=== PATIENT | male | born 1965 | race African-American/Black ===

== ENCOUNTER 2016-04-13 19:32 | Inpatient (IN) | payer MEDICAID ==
[~2016-04-13] VITALS: Ht 170.2 cm; Wt 68.0 kg
[~2016-04-13 19:32] MED LIST: AMLO10TA4 PO; ASPI-991 PO; SIMV20TA2 PO
[2016-04-13] MEDS ORDERED: ONDANSETRON HCL/PF 4 MG/2 ML VIAL IVP ONE (20:30)
[2016-04-13] MEDS ORDERED: ONDANSETRON HCL/PF 4 MG/2 ML VIAL ONE ×2 (20:33→23:36)
[2016-04-13 20:35] LABS: BASOPHILS % (AUTO) 0.7 % (0.0-2.0); DIFF TOTAL % 100 %; EOSINOPHILS # (AUTO) 0.1 /CMM (0.0-0.7); EOSINOPHILS % (AUTO) 1.9 % (0.0-6.0); HEMATOCRIT 35 % (39-51); HEMOGLOBIN 11.9 g/dL (13.5-17.5); LYMPHOCYTES # (AUTO) 1.6 /CMM (0.8-4.8); LYMPHOCYTES % (AUTO) 25.8 % (20.0-44.0); MEAN CORPUSCULAR HEMOGLOBIN 30 PG (26.0-33.0); MEAN CORPUSCULAR HGB CONC 34 g/dl (31.0-36.0); MEAN CORPUSCULAR VOLUME 88 fL (80-96); MONOCYTES # (AUTO) 0.7 /CMM (0.1-1.30); MONOCYTES % (AUTO) 11.5 % (2.0-12.0); NEUTROPHILS # (AUTO) 3.8 /CMM (1.8-8.9); NEUTROPHILS % (AUTO) 60.1 % (43.0-81.0); PLATELET COUNT (AUTO) 363 /CMM (150-450); RED BLOOD CELL COUNT(AUTO) 4.02 MIL/uL (4.5-6.0); WHITE BLOOD COUNT (AUTO) 6.2 K/uL (4.3-11.0)
[2016-04-13 20:45] LABS: ALBUMIN 3.7 g/dL (3.4-5.0); BILIRUBIN,DIRECT 0.1 mg/dL (0.0-0.2); BILIRUBIN,TOTAL 0.2 mg/dL (0.2-1.0); CALCIUM, SERUM 9.6 mg/dL (8.5-10.1); CREATININE 2.2 mg/dL (0.6-1.3); INDIRECT BILIRUBIN 0.1 mg/dL (0.0-1.1); POTASSIUM 3.1 mmol/L (3.5-5.1); TOTAL PROTEIN, SERUM 7.7 g/dL (6.4-8.2)
[2016-04-13] MEDS ORDERED: IV NS 0.9% 1,000 ML ONE ×2 (21:25→23:13)
[2016-04-13] MEDS ORDERED: IV SET PRIMARY 1 EA INFUS.SET MC ONE (21:25)
[2016-04-13] MEDS ORDERED: IV NS 0.9% 1,000 ML BAG IV ONE (21:30)
[2016-04-13 21:33] LABS: ABG BASE EXCESS 23.4 mmol/L; ABG PCO2 56.2 mmHg (35.0-45.0); ABG PH 7.558 (7.350-7.450); ABG PO2 79.4 mmHg (75.0-100.0); ABG TOTAL HEMOGLOBIN 12.1 G/dL (13.5-18.0); ALLEN TEST Pass; O2Hb 95.3 % (94.0-97.0)
[2016-04-13] MEDS ORDERED: Z GUARD REMEDY 2 OZ OINT TP PRN (23:00)
[2016-04-13] MEDS ORDERED: MAG HYDROX/AL HYDROX/SIMETH 30 ML UDC PO PRN (23:00)
[2016-04-13] MEDS ORDERED: ZOLPIDEM TARTRATE 5 MG TABLET PO PRN (23:00)
[2016-04-13] MEDS ORDERED: ONDANSETRON HCL/PF 4 MG/2 ML VIAL IVP PRN (23:00)
[2016-04-13] MEDS ORDERED: MAGNESIUM HYDROXIDE 30 ML UDC PO PRN (23:00)
[2016-04-13] MEDS ORDERED: IV SET PRIMARY PUMP SET 1 EA INFUS.SET MC ONE (23:13)
[2016-04-13] MEDS: IV NS 0.9% 1,000 ML IV PRN (23:42)
[2016-04-13 23:45] VITALS: BP 109/61
[2016-04-14] VITALS: BP 129/80
[2016-04-14] MEDS: HYDROMORPHONE INJ 2 MG/ML DISP.SYRIN IV PRN ×3 (00:04→09:55)
[2016-04-14] MEDS ORDERED: POTASSIUM CL. PREMIX PERIPHER. 200 ML ONE (00:57)
[2016-04-14] MEDS: POTASSIUM CL. PREMIX PERIPHER. 50 ML IV SCH ×4 (01:01→04:07)
[2016-04-14] MEDS ORDERED: HYDROMORPHONE INJ 2 MG/ML DISP.SYRIN ONE ×2 (03:14)
[2016-04-14 04:00] VITALS: BP_SYST 109; BP_SYST 129; BP_DIAS 61; BP_DIAS 80
[2016-04-14 06:50] LABS: BASOPHILS % (AUTO) 0.6 % (0.0-2.0); DIFF TOTAL % 100 %; EOSINOPHILS # (AUTO) 0.2 /CMM (0.0-0.7); EOSINOPHILS % (AUTO) 2.2 % (0.0-6.0); HEMATOCRIT 30 % (39-51); HEMOGLOBIN 10.3 g/dL (13.5-17.5); LYMPHOCYTES # (AUTO) 2.1 /CMM (0.8-4.8); LYMPHOCYTES % (AUTO) 26.7 % (20.0-44.0); MEAN CORPUSCULAR HEMOGLOBIN 30 PG (26.0-33.0); MEAN CORPUSCULAR HGB CONC 35 g/dl (31.0-36.0); MEAN CORPUSCULAR VOLUME 88 fL (80-96); MONOCYTES % (AUTO) 12.7 % (2.0-12.0); NEUTROPHILS # (AUTO) 4.6 /CMM (1.8-8.9); NEUTROPHILS % (AUTO) 57.8 % (43.0-81.0); PLATELET COUNT (AUTO) 312 /CMM (150-450); RED BLOOD CELL COUNT(AUTO) 3.39 MIL/uL (4.5-6.0); WHITE BLOOD COUNT (AUTO) 7.9 K/uL (4.3-11.0)
[2016-04-14 07:08] LABS: ALBUMIN 3.3 g/dL (3.4-5.0); BILIRUBIN,TOTAL 0.2 mg/dL (0.2-1.0); CALCIUM, SERUM 8.6 mg/dL (8.5-10.1); POTASSIUM 3.4 mmol/L (3.5-5.1); TOTAL PROTEIN, SERUM 6.7 g/dL (6.4-8.2)
[2016-04-14 07:41] LABS: INDIRECT BILIRUBIN 0.2 mg/dL (0.0-1.1)
[2016-04-14 08:00] VITALS: BP 110/68
[2016-04-14] MEDS: PANTOPRAZOLE 40 MG VIAL IV SCH (08:30)
[2016-04-14] MEDS ORDERED: acetaZOLAMIDE SODIUM 500 MG/VIAL VIAL IV ONE (11:00)
[2016-04-14] MEDS ORDERED: IV SET PRIMARY PUMP SET 1 EA INFUS.SET MC ONE (11:52)
[2016-04-14] MEDS ORDERED: POTASSIUM CHLORIDE 20 MEQ TAB.PRT.SR PO SCH (12:00)
[2016-04-14] MEDS ORDERED: POTASSIUM CL. PREMIX PERIPHER. 50 ML IV SCH (12:00)
[2016-04-14 14:57] LABS: CREATININE, URINE 74.5 MG/DL (30.0-125.0); URINE TOTAL PROTEIN 28.8 mg/dL (0-11.9)
[2016-04-14 15:23] LABS: ADD UA MICROSCOPIC NO; KETONES,URINE NEGATIVE (NEGATIVE); LEUKOCYTE ESTERASE ,URINE NEGATIVE (NEGATIVE); PH,URINE 8.5 (5.0-8.0)
[2016-04-14 16:00] VITALS: BP 117/68
[2016-04-14] MEDS ORDERED: ANESTHESIA TRAY IN PYXIS 1 EA TRAY MC ONE (17:26)
[2016-04-14] MEDS: IV NS 0.9% 1,000 ML IV PRN (19:12)
[2016-04-14 20:00] VITALS: BP 121/80
[2016-04-15 07:50] LABS: ALBUMIN 3.4 g/dL (3.4-5.0); BILIRUBIN,TOTAL 0.2 mg/dL (0.2-1.0); CALCIUM, SERUM 9.1 mg/dL (8.5-10.1); CREATININE 1.7 mg/dL (0.6-1.3); POTASSIUM 3.8 mmol/L (3.5-5.1); TOTAL PROTEIN, SERUM 7.3 g/dL (6.4-8.2)
[2016-04-15] MEDS: HYDROCODONE/APAP 5/325MG 1 EACH TABLET PO PRN (07:53)
[2016-04-15 08:00] VITALS: BP 127/90
[2016-04-15 08:06] LABS: BASOPHILS % (AUTO) 0.4 % (0.0-2.0); DIFF TOTAL % 100 %; EOSINOPHILS # (AUTO) 0.1 /CMM (0.0-0.7); EOSINOPHILS % (AUTO) 1.5 % (0.0-6.0); HEMATOCRIT 32 % (39-51); HEMOGLOBIN 10.8 g/dL (13.5-17.5); LYMPHOCYTES # (AUTO) 1.3 /CMM (0.8-4.8); MEAN CORPUSCULAR HEMOGLOBIN 30 PG (26.0-33.0); MEAN CORPUSCULAR HGB CONC 34 g/dl (31.0-36.0); MEAN CORPUSCULAR VOLUME 89 fL (80-96); MONOCYTES # (AUTO) 0.4 /CMM (0.1-1.30); MONOCYTES % (AUTO) 6.5 % (2.0-12.0); NEUTROPHILS # (AUTO) 4.5 /CMM (1.8-8.9); NEUTROPHILS % (AUTO) 70.6 % (43.0-81.0); PLATELET COUNT (AUTO) 327 /CMM (150-450); RED BLOOD CELL COUNT(AUTO) 3.62 MIL/uL (4.5-6.0); WHITE BLOOD COUNT (AUTO) 6.4 K/uL (4.3-11.0)
[2016-04-15] MEDS: PANTOPRAZOLE 40 MG VIAL IV SCH (08:39)
[2016-04-15] MEDS ORDERED: K PHOS NEUTRAL 250 MG TABLET PO ONE (14:00)
[2016-04-15] MEDS: IV NS 0.9% 1,000 ML IV PRN (14:57)
[2016-04-15 14:58] LABS: KETONES,URINE NEGATIVE (NEGATIVE); LEUKOCYTE ESTERASE ,URINE NEGATIVE (NEGATIVE)
[2016-04-15 15:05] LABS: ADD UA MICROSCOPIC YES
[2016-04-15 15:07] LABS: ADD URINE CULTURE NO; RBC,URINE 0-2 /HPF (0-2); WBC,URINE 0-2 /HPF (0-3)
[2016-04-15 15:08] LABS: CREATININE, URINE 125.3 MG/DL (30.0-125.0); URINE TOTAL PROTEIN 20.5 mg/dL (0-11.9)
[2016-04-15 16:00] VITALS: BP 128/73
[2016-04-15 16:06] VITALS: BP 128/73
[2016-04-15 20:00] VITALS: BP 117/66
[2016-04-16 07:12] LABS: BASOPHILS # (AUTO) 0.1 /CMM (0.0-0.2); BASOPHILS % (AUTO) 0.7 % (0.0-2.0); DIFF TOTAL % 100 %; EOSINOPHILS # (AUTO) 0.1 /CMM (0.0-0.7); EOSINOPHILS % (AUTO) 2.1 % (0.0-6.0); HEMATOCRIT 29 % (39-51); HEMOGLOBIN 9.6 g/dL (13.5-17.5); LYMPHOCYTES # (AUTO) 2.1 /CMM (0.8-4.8); LYMPHOCYTES % (AUTO) 30.6 % (20.0-44.0); MEAN CORPUSCULAR HEMOGLOBIN 30 PG (26.0-33.0); MEAN CORPUSCULAR HGB CONC 34 g/dl (31.0-36.0); MEAN CORPUSCULAR VOLUME 88 fL (80-96); MONOCYTES # (AUTO) 0.8 /CMM (0.1-1.30); MONOCYTES % (AUTO) 10.9 % (2.0-12.0); NEUTROPHILS # (AUTO) 3.9 /CMM (1.8-8.9); NEUTROPHILS % (AUTO) 55.7 % (43.0-81.0); PLATELET COUNT (AUTO) 283 /CMM (150-450); RED BLOOD CELL COUNT(AUTO) 3.27 MIL/uL (4.5-6.0)
[2016-04-16 07:30] LABS: CALCIUM, SERUM 8.5 mg/dL (8.5-10.1); CREATININE 1.5 mg/dL (0.6-1.3); PHOSPHORUS 2.1 mg/dL (2.5-4.9); POTASSIUM 3.3 mmol/L (3.5-5.1)
[2016-04-16 08:00] VITALS: BP 129/79
[2016-04-16] MEDS: PANTOPRAZOLE 40 MG VIAL IV SCH (08:32)
[2016-04-16 11:34] LABS: *SPE ALBUMIN 3.5 g/dL (2.9-4.4)
[2016-04-16] MEDS ORDERED: POTASSIUM CL. PREMIX PERIPHER. 50 ML IV SCH (12:36)
[2016-04-16] MEDS: IV NS 0.9% 1,000 ML IV PRN (12:36)
[2016-04-16] MEDS ORDERED: SECONDARY IV SET 1 EA INFUS.SET MC ONE (12:58)
[2016-04-16] MEDS: Potassium Chloride 40 MEQ in IV D5/ 0.9% NACL 1,000 ML IV PRN (14:41)
[2016-04-16 16:00] VITALS: BP 126/72
[2016-04-16 16:13] LABS: PTH, INTACT 45 pg/mL (15-65)
[2016-04-16] MEDS: ACETAMINOPHEN 325 MG TABLET PO PRN (17:17)
[2016-04-16] MEDS ORDERED: K PHOS NEUTRAL 250 MG TABLET PO ONE (18:00)
[2016-04-16 20:00] VITALS: BP_SYST 116; BP_SYST 127; BP_DIAS 73; BP_DIAS 89
[2016-04-17] MEDS ORDERED: IV PREMIX D5 NS + KCL 1,000 ML IV ONE (03:48)
[2016-04-17] MEDS: Potassium Chloride 40 MEQ in IV D5/ 0.9% NACL 1,000 ML IV PRN (04:27)
[2016-04-17 07:47] LABS: BASOPHILS % (AUTO) 0.6 % (0.0-2.0); DIFF TOTAL % 100 %; EOSINOPHILS # (AUTO) 0.2 /CMM (0.0-0.7); EOSINOPHILS % (AUTO) 2.5 % (0.0-6.0); HEMATOCRIT 31 % (39-51); HEMOGLOBIN 10.5 g/dL (13.5-17.5); LYMPHOCYTES # (AUTO) 1.7 /CMM (0.8-4.8); LYMPHOCYTES % (AUTO) 25.7 % (20.0-44.0); MEAN CORPUSCULAR HEMOGLOBIN 30 PG (26.0-33.0); MEAN CORPUSCULAR HGB CONC 34 g/dl (31.0-36.0); MEAN CORPUSCULAR VOLUME 88 fL (80-96); MONOCYTES # (AUTO) 0.7 /CMM (0.1-1.30); NEUTROPHILS # (AUTO) 4.1 /CMM (1.8-8.9); NEUTROPHILS % (AUTO) 60.2 % (43.0-81.0); PLATELET COUNT (AUTO) 305 /CMM (150-450); RED BLOOD CELL COUNT(AUTO) 3.55 MIL/uL (4.5-6.0); WHITE BLOOD COUNT (AUTO) 6.7 K/uL (4.3-11.0)
[2016-04-17 07:53] LABS: CALCIUM, SERUM 8.5 mg/dL (8.5-10.1); CREATININE 1.4 mg/dL (0.6-1.3); PHOSPHORUS 1.8 mg/dL (2.5-4.9); POTASSIUM 4.7 mmol/L (3.5-5.1)
[2016-04-17 08:00] VITALS: BP 126/78
[2016-04-17] MEDS: HYDROCODONE/APAP 5/325MG 1 EACH TABLET PO PRN (08:50)
[2016-04-17] MEDS: PANTOPRAZOLE 40 MG VIAL IV SCH (08:50)
[2016-04-17] MEDS ORDERED: Sodium Phosphate 15 MMOL in IV D5W 250 ML IV ONE (12:30)
[2016-04-17] MEDS ORDERED: SECONDARY IV SET 1 EA INFUS.SET MC ONE (13:07)
[2016-04-17] MEDS: IV NS 0.9% 1,000 ML IV PRN (13:10)
[2016-04-17 16:00] VITALS: BP 131/86
[2016-04-17 20:00] VITALS: BP 138/87
[2016-04-17 20:33] VITALS: BP 138/87
[2016-04-17] MEDS: HYDROMORPHONE INJ 2 MG/ML DISP.SYRIN IV PRN (21:24)
[2016-04-18 07:41] LABS: BASOPHILS % (AUTO) 0.6 % (0.0-2.0); DIFF TOTAL % 100 %; EOSINOPHILS # (AUTO) 0.1 /CMM (0.0-0.7); EOSINOPHILS % (AUTO) 2.2 % (0.0-6.0); HEMATOCRIT 28 % (39-51); HEMOGLOBIN 9.4 g/dL (13.5-17.5); LYMPHOCYTES # (AUTO) 1.8 /CMM (0.8-4.8); LYMPHOCYTES % (AUTO) 28.4 % (20.0-44.0); MEAN CORPUSCULAR HEMOGLOBIN 30 PG (26.0-33.0); MEAN CORPUSCULAR HGB CONC 34 g/dl (31.0-36.0); MEAN CORPUSCULAR VOLUME 88 fL (80-96); MONOCYTES # (AUTO) 0.6 /CMM (0.1-1.30); MONOCYTES % (AUTO) 8.9 % (2.0-12.0); NEUTROPHILS # (AUTO) 3.7 /CMM (1.8-8.9); NEUTROPHILS % (AUTO) 59.9 % (43.0-81.0); PLATELET COUNT (AUTO) 253 /CMM (150-450); RED BLOOD CELL COUNT(AUTO) 3.15 MIL/uL (4.5-6.0); WHITE BLOOD COUNT (AUTO) 6.2 K/uL (4.3-11.0)
[2016-04-18 07:50] LABS: CALCIUM, SERUM 8.3 mg/dL (8.5-10.1); CREATININE 1.2 mg/dL (0.6-1.3); POTASSIUM 4.3 mmol/L (3.5-5.1)
[2016-04-18 08:00] VITALS: BP_SYST 110; BP_SYST 138; BP_DIAS 70
[2016-04-18] MEDS: PANTOPRAZOLE 40 MG VIAL IV SCH (08:36)
[2016-04-18] MEDS ORDERED: LORAZEPAM 1 MG TABLET PO PRN (12:00)
[2016-04-18] MEDS ORDERED: OLANZAPINE 5 MG/TAB.RAPDIS PO PRN (12:00)
[2016-04-18] MEDS: IV NS 0.9% 1,000 ML IV PRN (12:26)
[2016-04-18 16:00] VITALS: BP 122/75
[2016-04-18 20:05] VITALS: BP 131/81
[2016-04-19 07:24] LABS: CALCIUM, SERUM 8.5 mg/dL (8.5-10.1); CREATININE 1.3 mg/dL (0.6-1.3); POTASSIUM 4.6 mmol/L (3.5-5.1)
[2016-04-19 08:40] VITALS: BP 135/92
[2016-04-19] MEDS: PANTOPRAZOLE 40 MG VIAL IV SCH (09:26)
[2016-04-19] MEDS ORDERED: IOHEXOL-300 100 ML VIAL IV ONE (10:19)
[2016-04-19] MEDS ORDERED: CT SWABBABLE VALVE TRANS SET 1 EA INFUS.SET MC ONE (10:24)
[2016-04-19 16:00] VITALS: BP 142/92
[2016-04-19 20:00] VITALS: BP 138/89
[2016-04-20 08:00] VITALS: BP 115/72
[2016-04-20] MEDS: PANTOPRAZOLE 40 MG VIAL IV SCH (08:00)
[2016-04-20 08:24] LABS: CALCIUM, SERUM 8.4 mg/dL (8.5-10.1); CREATININE 1.2 mg/dL (0.6-1.3); POTASSIUM 4.4 mmol/L (3.5-5.1)
[2016-04-20 09:23] LABS: BASOPHILS % (AUTO) 0.5 % (0.0-2.0); DIFF TOTAL % 100 %; EOSINOPHILS # (AUTO) 0.2 /CMM (0.0-0.7); EOSINOPHILS % (AUTO) 2.5 % (0.0-6.0); HEMATOCRIT 27 % (39-51); HEMOGLOBIN 8.9 g/dL (13.5-17.5); LYMPHOCYTES # (AUTO) 1.8 /CMM (0.8-4.8); LYMPHOCYTES % (AUTO) 26.7 % (20.0-44.0); MEAN CORPUSCULAR HEMOGLOBIN 30 PG (26.0-33.0); MEAN CORPUSCULAR HGB CONC 34 g/dl (31.0-36.0); MEAN CORPUSCULAR VOLUME 89 fL (80-96); MONOCYTES # (AUTO) 0.7 /CMM (0.1-1.30); MONOCYTES % (AUTO) 9.7 % (2.0-12.0); NEUTROPHILS # (AUTO) 4.1 /CMM (1.8-8.9); NEUTROPHILS % (AUTO) 60.6 % (43.0-81.0); PLATELET COUNT (AUTO) 247 /CMM (150-450); WHITE BLOOD COUNT (AUTO) 6.7 K/uL (4.3-11.0)
[2016-04-20] MEDS ORDERED: SUCCINYLCHOLINE CHLORIDE 20 MG/ML VIAL ONE (15:12)
[2016-04-20] MEDS ORDERED: IOHEXOL 50 ML IV ONE ×2 (15:32→15:53)
[2016-04-20] MEDS ORDERED: PROPOFOL 0 ML IV ONE (15:56)
[2016-04-20] MEDS ORDERED: IOHEXOL 100 ML IV ONE (15:57)
[2016-04-20] MEDS ORDERED: hydrALAZINE HCL IV 20 MG VIAL ONE (16:48)
[2016-04-20] MEDS ORDERED: ANESTHESIA TRAY IN PYXIS 1 EA TRAY MC ONE (17:01)
[2016-04-20 17:16] VITALS: BP 152/99
[2016-04-20 20:00] VITALS: BP 137/90
[2016-04-21 07:51] LABS: BASOPHILS # (AUTO) 0.2 /CMM (0.0-0.2); BASOPHILS % (AUTO) 1.4 % (0.0-2.0); DIFF TOTAL % 100 %; HEMATOCRIT 29 % (39-51); HEMOGLOBIN 9.8 g/dL (13.5-17.5); MEAN CORPUSCULAR HEMOGLOBIN 30 PG (26.0-33.0); MEAN CORPUSCULAR HGB CONC 34 g/dl (31.0-36.0); MEAN CORPUSCULAR VOLUME 89 fL (80-96); MONOCYTES # (AUTO) 1.2 /CMM (0.1-1.30); MONOCYTES % (AUTO) 7.5 % (2.0-12.0); NEUTROPHILS # (AUTO) 13.8 /CMM (1.8-8.9); NEUTROPHILS % (AUTO) 85.1 % (43.0-81.0); PLATELET COUNT (AUTO) 265 /CMM (150-450); RED BLOOD CELL COUNT(AUTO) 3.24 MIL/uL (4.5-6.0); WHITE BLOOD COUNT (AUTO) 16.2 K/uL (4.3-11.0)
[2016-04-21 08:00] VITALS: BP_SYST 141; BP_SYST 144; BP_DIAS 91
[2016-04-21] MEDS: PANTOPRAZOLE 40 MG VIAL IV SCH (08:04)
[2016-04-21 08:32] LABS: ALBUMIN 2.9 g/dL (3.4-5.0); BILIRUBIN,TOTAL 0.2 mg/dL (0.2-1.0); CALCIUM, SERUM 8.7 mg/dL (8.5-10.1); CREATININE 1.4 mg/dL (0.6-1.3); POTASSIUM 4.5 mmol/L (3.5-5.1); TOTAL PROTEIN, SERUM 6.5 g/dL (6.4-8.2)
[2016-04-21] MEDS: ACETAMINOPHEN 325 MG TABLET PO PRN (11:48)
[2016-04-21 16:00] VITALS: BP 144/90
[2016-04-21 20:00] VITALS: BP 141/97
[2016-04-21] MEDS: HYDROCODONE/APAP 5/325MG 1 EACH TABLET PO PRN (22:25)
[2016-04-22 08:00] VITALS: BP 133/83
[2016-04-22] MEDS: PANTOPRAZOLE 40 MG VIAL IV SCH (08:47)
== END 2016-04-22 15:00 | DRG 254 ==
LOC: ER 19:34 → TELE 22:49 → MED 04-14 11:58
PROVIDERS: ADMIT Internal Medicine; ATTEND Internal Medicine
PROC: 0DB78ZX Excision of Stomach, Pylorus, Via Natural or Artificial Opening Endoscopic, Diagnostic (ICD-10-PCS; principal; 2016-04-14 14:10)
PROC: 0D798ZZ Dilation of Duodenum, Via Natural or Artificial Opening Endoscopic (ICD-10-PCS; 2016-04-20)
DX: K31.1 Adult hypertrophic pyloric stenosis (principal); N17.0 Acute kidney failure with tubular necrosis; E87.4 Mixed disorder of acid-base balance; K31.84 Gastroparesis; I12.9 Hypertensive chronic kidney disease with stage 1 through stage 4 chronic kidney disease, or unspecified chronic kidney disease; K83.8 Other specified diseases of biliary tract; E87.6 Hypokalemia; N18.9 Chronic kidney disease, unspecified; D63.8 Anemia in other chronic diseases classified elsewhere; E78.5 Hyperlipidemia, unspecified; F17.210 Nicotine dependence, cigarettes, uncomplicated; F31.9 Bipolar disorder, unspecified; R63.0 Anorexia; Z68.23 Body mass index [BMI] 23.0-23.9, adult; Z87.898 Personal history of other specified conditions; F29 Unspecified psychosis not due to a substance or known physiological condition; F20.0 Paranoid schizophrenia; R19.09 Other intra-abdominal and pelvic swelling, mass and lump; E86.0 Dehydration
CPT/HCPCS: 36415; 36600; 71010-TC; 74000-TC; 74178; 74181-TC; 80048-TC; 80053-TC; 80076-TC; 81000-TC; 82550-TC; 82570-TC; 83690-TC; 83735-TC; 83970; 84100-TC; 84155; 84155-TC; 84165; 84300-TC; 85025-TC; 87081-TC; 88305-TC; 88313-TC; 88342; A4570; A4606; A9563; C9113; J0330; J0360; J1100; J1120; J1170; J2405; J2704; J3480; J3490; J7030; J7042; J7060; Q9967; Z7610

== ENCOUNTER 2016-05-01 07:30 | Inpatient (IN) | payer MEDICAID ==
[~2016-05-01] VITALS: Ht 170.2 cm; Wt 68.5 kg
[2016-05-01 08:06] LABS: BASOPHILS % (AUTO) 0.2 % (0.0-2.0); DIFF TOTAL % 100 %; EOSINOPHILS # (AUTO) 0.1 /CMM (0.0-0.7); EOSINOPHILS % (AUTO) 1.1 % (0.0-6.0); HEMATOCRIT 27 % (39-51); LYMPHOCYTES # (AUTO) 1.4 /CMM (0.8-4.8); LYMPHOCYTES % (AUTO) 13.3 % (20.0-44.0); MEAN CORPUSCULAR HEMOGLOBIN 29 PG (26.0-33.0); MEAN CORPUSCULAR HGB CONC 34 g/dl (31.0-36.0); MEAN CORPUSCULAR VOLUME 87 fL (80-96); MONOCYTES # (AUTO) 0.5 /CMM (0.1-1.30); MONOCYTES % (AUTO) 4.7 % (2.0-12.0); NEUTROPHILS # (AUTO) 8.5 /CMM (1.8-8.9); NEUTROPHILS % (AUTO) 80.7 % (43.0-81.0); PLATELET COUNT (AUTO) 388 /CMM (150-450); RED BLOOD CELL COUNT(AUTO) 3.06 MIL/uL (4.5-6.0); WHITE BLOOD COUNT (AUTO) 10.5 K/uL (4.3-11.0)
[2016-05-01 08:07] LABS: ADD UA MICROSCOPIC YES; KETONES,URINE 2+ (NEGATIVE); LEUKOCYTE ESTERASE ,URINE NEGATIVE (NEGATIVE); PH,URINE 5.5 (5.0-8.0)
[2016-05-01 08:09] LABS: ADD URINE CULTURE NO; MUCUS,URINE Few /LPF (None Seen); RBC,URINE 0-2 /HPF (0-2); WBC,URINE 0-2 /HPF (0-3)
[2016-05-01 08:10] LABS: UA OPERATOR RI
[2016-05-01 08:15] LABS: ANION GAP 14 (5-14); CALCIUM, SERUM 9.1 mg/dL (8.5-10.1); CARBON DIOXIDE 26 mmol/L (21-32); CHLORIDE 104 mmol/L (98-107); CREATININE 1.1 mg/dL (0.6-1.3); GFR 86 mL/min (>60); GLUCOSE 107 mg/dL (74-106); SODIUM SERUM 140 mmol/L (136-145); UREA NITROGEN, BLOOD 15 mg/dL (7-18)
[2016-05-01 08:20] LABS: ALANINE AMINOTRANSFERASE 31 U/L (12-78); ALBUMIN 3.5 g/dL (3.4-5.0); ASPARTATE AMINOTRANSFERASE 18 U/L (15-37); BILIRUBIN,DIRECT 0.1 mg/dL (0.0-0.2); BILIRUBIN,TOTAL 0.4 mg/dL (0.2-1.0); INDIRECT BILIRUBIN 0.3 mg/dL (0.0-1.1); TOTAL PROTEIN, SERUM 7.1 g/dL (6.4-8.2)
[2016-05-01 08:21] LABS: ACETAMINOPHEN 0 ug/ml (10-30); SALICYLATE 0.3 mg/dL (2.8-20.0)
[2016-05-01 08:22] LABS: CANNABINOID, URINE NEGATIVE (NEGATIVE); PHENCYCLIDINE SCREEN,URINE NEGATIVE (NEGATIVE); TROPONIN I < 0.017 ng/mL (0.00-0.056)
[2016-05-01] MEDS ORDERED: ONDANSETRON HCL/PF 4 MG/2 ML VIAL IVP PRN (10:30)
[2016-05-01] MEDS ORDERED: Z GUARD REMEDY 2 OZ OINT TP PRN (10:30)
[2016-05-01] MEDS ORDERED: ZOLPIDEM TARTRATE 5 MG TABLET PO PRN (10:30)
[2016-05-01] MEDS ORDERED: MAGNESIUM HYDROXIDE 30 ML UDC PO PRN (10:30)
[2016-05-01] MEDS ORDERED: ACETAMINOPHEN 325 MG TABLET PO PRN (10:30)
[2016-05-01] MEDS ORDERED: NITROGLYCERIN PACKET 1 GM PACKET TOP ONE (10:30)
[2016-05-01] MEDS: ENOXAPARIN SODIUM 40 MG/0.4 ML DISP.SYRIN SQ SCH (13:08)
[2016-05-01 16:00] VITALS: BP 149/98
[2016-05-01] MEDS: HYDROCODONE/APAP 5/325MG 1 EACH TABLET PO PRN ×2 (18:59→22:36)
[2016-05-01 20:00] VITALS: BP_SYST 146; BP_DIAS 101; BP_DIAS 73
[2016-05-01] MEDS ORDERED: hydrALAZINE HCL 25 MG TABLET PO PRN (21:00)
[2016-05-01] MEDS ORDERED: SIMVASTATIN 20 MG TABLET PO SCH (22:00)
[2016-05-01 23:53] VITALS: BP 146/101
[2016-05-02] VITALS: BP 136/80
[2016-05-02] MEDS ORDERED: MORPHINE SULFATE INJ 2 MG/ML DISP.SYRIN ONE ×3 (01:02→05:49)
[2016-05-02] MEDS: MORPHINE SULFATE INJ 2 MG/ML DISP.SYRIN IV PRN ×2 (01:14→05:53)
[2016-05-02] MEDS: MAG HYDROX/AL HYDROX/SIMETH 30 ML UDC PO PRN ×2 (01:22→06:18)
[2016-05-02 04:00] VITALS: BP 161/97
[2016-05-02 06:51] LABS: BASOPHILS % (AUTO) 0.2 % (0.0-2.0); DIFF TOTAL % 100 %; EOSINOPHILS # (AUTO) 0.1 /CMM (0.0-0.7); EOSINOPHILS % (AUTO) 1.4 % (0.0-6.0); HEMATOCRIT 26 % (39-51); HEMOGLOBIN 8.8 g/dL (13.5-17.5); LYMPHOCYTES # (AUTO) 1.6 /CMM (0.8-4.8); LYMPHOCYTES % (AUTO) 14.7 % (20.0-44.0); MEAN CORPUSCULAR HEMOGLOBIN 29 PG (26.0-33.0); MEAN CORPUSCULAR HGB CONC 33 g/dl (31.0-36.0); MEAN CORPUSCULAR VOLUME 87 fL (80-96); MONOCYTES # (AUTO) 0.6 /CMM (0.1-1.30); MONOCYTES % (AUTO) 5.3 % (2.0-12.0); NEUTROPHILS # (AUTO) 8.5 /CMM (1.8-8.9); NEUTROPHILS % (AUTO) 78.4 % (43.0-81.0); PLATELET COUNT (AUTO) 379 /CMM (150-450); RED BLOOD CELL COUNT(AUTO) 3.01 MIL/uL (4.5-6.0); WHITE BLOOD COUNT (AUTO) 10.9 K/uL (4.3-11.0)
[2016-05-02 07:11] VITALS: BP 146/92
[2016-05-02 07:15] LABS: CALCIUM, SERUM 8.9 mg/dL (8.5-10.1); CREATININE 1.2 mg/dL (0.6-1.3); POTASSIUM 3.7 mmol/L (3.5-5.1)
[2016-05-02 08:00] VITALS: BP 146/92
[2016-05-02] MEDS: PANTOPRAZOLE 40 MG TABLET.DR PO SCH (08:29)
[2016-05-02] MEDS: AMLODIPINE BESYLATE 10 MG TABLET PO SCH (08:30)
[2016-05-02] MEDS ORDERED: ASPIRIN EC 81 MG TABLET.DR PO SCH (09:00)
[2016-05-02] MEDS: ENOXAPARIN SODIUM 40 MG/0.4 ML DISP.SYRIN SQ SCH (09:38)
[2016-05-02 10:11] LABS: IRON, SERUM 19 ug/dl (50-175); PERCENT SATURATION 5 % (14-33); TOTAL IRON BINDING CAPACITY 397 ug/dl (250-450)
[2016-05-02 16:00] VITALS: BP 132/86
[2016-05-02] MEDS: HYDROCODONE/APAP 5/325MG 1 EACH TABLET PO PRN (16:56)
[2016-05-02 20:00] VITALS: BP 141/87
[2016-05-03 08:00] VITALS: BP 119/79
[2016-05-03 08:31] VITALS: BP 119/79
[2016-05-03] MEDS: PANTOPRAZOLE 40 MG TABLET.DR PO SCH (08:31)
[2016-05-03] MEDS: AMLODIPINE BESYLATE 10 MG TABLET PO SCH (08:31)
[2016-05-03] MEDS: ENOXAPARIN SODIUM 40 MG/0.4 ML DISP.SYRIN SQ SCH (11:18)
== END 2016-05-03 15:10 | disposition home or self-care (01) | DRG 254 ==
LOC: ER 07:33 → TELE 10:20 → MED 05-02 11:03
PROVIDERS: ADMIT Internal Medicine; ATTEND Internal Medicine
DX: K31.1 Adult hypertrophic pyloric stenosis (principal); I10 Essential (primary) hypertension; R07.89 Other chest pain; F17.210 Nicotine dependence, cigarettes, uncomplicated; Z79.899 Other long term (current) drug therapy; F29 Unspecified psychosis not due to a substance or known physiological condition
CPT/HCPCS: 36415; 71010-TC; 80048-TC; 80061-TC; 80076-TC; 80305; 81000-TC; 82728-TC; 83540-TC; 83735-TC; 84100-TC; 84484-TC; 85025-TC; 87081-TC; 93307-TC; A4606; G6038-TC; G6039-TC; G6040-TC; J1650; J2270; J2405; Z7610

== ENCOUNTER 2016-05-04 07:00 | Emergency (ER) | payer MEDICAID ==
[~2016-05-04] VITALS: Ht 170.2 cm; Wt 68.0 kg
[2016-05-04] MEDS ORDERED: KETOROLAC TROMETHAMINE INJ 30 MG/ML VIAL ONE (08:19)
[2016-05-04] MEDS ORDERED: IV SET PRIMARY 1 EA INFUS.SET MC ONE (08:19)
[2016-05-04] MEDS ORDERED: IV NS 0.9% 1,000 ML ONE (08:19)
[2016-05-04 08:30] LABS: BASOPHILS % (AUTO) 0.1 % (0.0-2.0); DIFF TOTAL % 100 %; EOSINOPHILS # (AUTO) 0.2 /CMM (0.0-0.7); EOSINOPHILS % (AUTO) 1.6 % (0.0-6.0); HEMATOCRIT 25 % (39-51); HEMOGLOBIN 8.3 g/dL (13.5-17.5); LYMPHOCYTES # (AUTO) 1.1 /CMM (0.8-4.8); LYMPHOCYTES % (AUTO) 11.3 % (20.0-44.0); MEAN CORPUSCULAR HEMOGLOBIN 29 PG (26.0-33.0); MEAN CORPUSCULAR HGB CONC 33 g/dl (31.0-36.0); MEAN CORPUSCULAR VOLUME 87 fL (80-96); MONOCYTES # (AUTO) 0.8 /CMM (0.1-1.30); MONOCYTES % (AUTO) 7.5 % (2.0-12.0); NEUTROPHILS # (AUTO) 8.1 /CMM (1.8-8.9); NEUTROPHILS % (AUTO) 79.5 % (43.0-81.0); PLATELET COUNT (AUTO) 418 /CMM (150-450); RED BLOOD CELL COUNT(AUTO) 2.91 MIL/uL (4.5-6.0); WHITE BLOOD COUNT (AUTO) 10.1 K/uL (4.3-11.0)
[2016-05-04] MEDS ORDERED: IV NS 0.9% 1,000 ML BAG IV ONE (08:30)
[2016-05-04] MEDS ORDERED: KETOROLAC TROMETHAMINE INJ 30 MG/ML VIAL IV ONE (08:30)
[2016-05-04 08:40] LABS: CREATININE 1.1 mg/dL (0.6-1.3); POTASSIUM 4.3 mmol/L (3.5-5.1)
[2016-05-04 08:46] LABS: ALBUMIN 3.5 g/dL (3.4-5.0); BILIRUBIN,TOTAL 0.2 mg/dL (0.2-1.0); TOTAL PROTEIN, SERUM 6.7 g/dL (6.4-8.2)
[2016-05-04 08:50] LABS: INDIRECT BILIRUBIN 0.2 mg/dL (0.0-1.1)
[2016-05-04 08:54] LABS: ADD UA MICROSCOPIC NO; KETONES,URINE NEGATIVE (NEGATIVE); LEUKOCYTE ESTERASE ,URINE NEGATIVE (NEGATIVE)
[2016-05-04 09:32] VITALS: BP 146/84
== END 2016-05-04 09:33 | disposition home or self-care (01) ==
LOC: ER 07:00
DX: K59.00 Constipation, unspecified (principal); E78.5 Hyperlipidemia, unspecified; I12.9 Hypertensive chronic kidney disease with stage 1 through stage 4 chronic kidney disease, or unspecified chronic kidney disease; N28.9 Disorder of kidney and ureter, unspecified; F31.9 Bipolar disorder, unspecified; F17.210 Nicotine dependence, cigarettes, uncomplicated; Z79.82 Long term (current) use of aspirin
CPT/HCPCS: 36415; 74176; 80048; 80076; 81001; 83690; 85025; 87086; 96361; 96374; 99285; A4606; J1885; J7030; Z7610; 81000-TC

== ENCOUNTER 2016-05-04 14:23 | Emergency (ER) | payer MEDICAID ==
[~2016-05-04] VITALS: Ht 182.9 cm; Wt 72.6 kg
[2016-05-04 14:32] VITALS: BP 144/81
[2016-05-04] MEDS ORDERED: ONDANSETRON 4 MG TAB.RAPDIS SL ONE (15:30)
[2016-05-04] MEDS ORDERED: ONDANSETRON 4 MG TAB.RAPDIS ONE (15:35)
== END 2016-05-04 15:39 | disposition home or self-care (01) ==
LOC: ER 14:28
DX: R11.2 Nausea with vomiting, unspecified (principal); F17.200 Nicotine dependence, unspecified, uncomplicated; E78.5 Hyperlipidemia, unspecified; I12.9 Hypertensive chronic kidney disease with stage 1 through stage 4 chronic kidney disease, or unspecified chronic kidney disease; N18.9 Chronic kidney disease, unspecified; F31.9 Bipolar disorder, unspecified; Z88.6 Allergy status to analgesic agent
CPT/HCPCS: 99283; A4606; Q0162; Z7610

== ENCOUNTER 2016-05-08 06:36 | Emergency (ER) | payer MEDICAID, OTHER ==
[~2016-05-08] VITALS: Ht 188 cm; Wt 72.6 kg
[2016-05-08] MEDS ORDERED: ONDANSETRON HCL/PF 4 MG/2 ML VIAL IVP ONE (07:30)
[2016-05-08] MEDS ORDERED: IV NS 0.9% 1,000 ML BAG IV ONE (07:30)
[2016-05-08] MEDS ORDERED: IV NS 0.9% 1,000 ML ONE (07:37)
[2016-05-08] MEDS ORDERED: IV SET PRIMARY PUMP SET 1 EA INFUS.SET MC ONE (07:37)
[2016-05-08] MEDS ORDERED: ONDANSETRON HCL/PF 4 MG/2 ML VIAL ONE (07:37)
[2016-05-08 07:58] LABS: BASOPHILS % (AUTO) 0.3 % (0.0-2.0); DIFF TOTAL % 100 %; EOSINOPHILS # (AUTO) 0.1 /CMM (0.0-0.7); HEMATOCRIT 26 % (39-51); HEMOGLOBIN 8.5 g/dL (13.5-17.5); LYMPHOCYTES % (AUTO) 9.8 % (20.0-44.0); MEAN CORPUSCULAR HEMOGLOBIN 28 PG (26.0-33.0); MEAN CORPUSCULAR HGB CONC 33 g/dl (31.0-36.0); MEAN CORPUSCULAR VOLUME 85 fL (80-96); MONOCYTES # (AUTO) 0.8 /CMM (0.1-1.30); MONOCYTES % (AUTO) 7.4 % (2.0-12.0); NEUTROPHILS # (AUTO) 8.6 /CMM (1.8-8.9); NEUTROPHILS % (AUTO) 81.5 % (43.0-81.0); PLATELET COUNT (AUTO) 536 /CMM (150-450); RED BLOOD CELL COUNT(AUTO) 3.04 MIL/uL (4.5-6.0); WHITE BLOOD COUNT (AUTO) 10.5 K/uL (4.3-11.0)
[2016-05-08 08:02] LABS: INR 0.95 (0.87-1.13)
[2016-05-08 08:05] LABS: CALCIUM, SERUM 9.3 mg/dL (8.5-10.1); CREATININE 1.3 mg/dL (0.6-1.3)
[2016-05-08 08:10] LABS: ALBUMIN 3.5 g/dL (3.4-5.0); BILIRUBIN,DIRECT 0.1 mg/dL (0.0-0.2); BILIRUBIN,TOTAL 0.2 mg/dL (0.2-1.0); INDIRECT BILIRUBIN 0.1 mg/dL (0.0-1.1)
[2016-05-08 10:00] VITALS: BP 142/89
== END 2016-05-08 10:25 | disposition home or self-care (01) ==
LOC: ER 06:47
DX: R10.84 Generalized abdominal pain (principal); I10 Essential (primary) hypertension; E78.5 Hyperlipidemia, unspecified; N18.9 Chronic kidney disease, unspecified; F31.9 Bipolar disorder, unspecified; F17.210 Nicotine dependence, cigarettes, uncomplicated
CPT/HCPCS: 36415; 80048; 80076; 83690; 85025; 85730; 86850; 96361; 96374; 99284; A4606; J2405; J7030; Z7610

== ENCOUNTER 2016-05-23 07:20 | Emergency (ER) | payer OTHER ==
[~2016-05-23] VITALS: Ht 170.2 cm; Wt 63.5 kg
[2016-05-23 07:28] VITALS: BP 158/82
[2016-05-23] MEDS ORDERED: MAGNESIUM CITRATE 296 ML BOTTLE PO ONE (07:30)
[2016-05-23] MEDS ORDERED: MAGNESIUM CITRATE 296 ML BOTTLE ONE (07:44)
== END 2016-05-23 07:52 | disposition home or self-care (01) ==
LOC: ER 07:21
DX: K59.00 Constipation, unspecified (principal); E78.5 Hyperlipidemia, unspecified; I10 Essential (primary) hypertension; I12.9 Hypertensive chronic kidney disease with stage 1 through stage 4 chronic kidney disease, or unspecified chronic kidney disease; N18.9 Chronic kidney disease, unspecified; Z79.82 Long term (current) use of aspirin; F17.210 Nicotine dependence, cigarettes, uncomplicated; F10.20 Alcohol dependence, uncomplicated
CPT/HCPCS: 99282; A4606; Z7610

== ENCOUNTER 2016-06-05 19:37 | Emergency (ER) | payer OTHER ==
[~2016-06-05] VITALS: Ht 182.9 cm; Wt 81.6 kg
[2016-06-05] MEDS ORDERED: IBUPROFEN 600 MG TABLET PO ONE ×2 (20:08→20:30)
[2016-06-05 20:30] VITALS: BP 132/76
== END 2016-06-05 20:31 | disposition home or self-care (01) ==
LOC: ER 19:42
DX: R07.89 Other chest pain (principal); E78.5 Hyperlipidemia, unspecified; I12.9 Hypertensive chronic kidney disease with stage 1 through stage 4 chronic kidney disease, or unspecified chronic kidney disease; N18.9 Chronic kidney disease, unspecified; Z79.82 Long term (current) use of aspirin; F10.10 Alcohol abuse, uncomplicated; F17.210 Nicotine dependence, cigarettes, uncomplicated; F31.9 Bipolar disorder, unspecified
CPT/HCPCS: 99282; A4606; Z7610

== ENCOUNTER 2016-06-09 08:04 | Emergency (ER) | payer OTHER ==
[~2016-06-09] VITALS: Ht 170.2 cm; Wt 63.5 kg
[2016-06-09 08:10] VITALS: BP 152/72
[2016-06-09] MEDS ORDERED: ONDANSETRON HCL/PF 4 MG/2 ML VIAL ONE (08:24)
[2016-06-09] MEDS ORDERED: IV SET PRIMARY 1 EA INFUS.SET MC ONE (08:24)
[2016-06-09] MEDS ORDERED: IV NS 0.9% 500 ML IV ONE (08:24)
[2016-06-09] MEDS ORDERED: DICYCLOMINE HCL INJ 20 MG/2 ML AMPUL IM ONE ×2 (08:24→08:30)
[2016-06-09] MEDS ORDERED: ONDANSETRON HCL/PF 4 MG/2 ML VIAL IVP ONE (08:30)
[2016-06-09] MEDS ORDERED: IV NS 0.9% 500 ML BAG IV ONE (08:30)
[2016-06-09 08:55] LABS: CALCIUM, SERUM 8.8 mg/dL (8.5-10.1); CREATININE 1.4 mg/dL (0.6-1.3); POTASSIUM 3.7 mmol/L (3.5-5.1)
[2016-06-09 09:02] LABS: ALBUMIN 3.2 g/dL (3.4-5.0); BILIRUBIN,DIRECT 0.1 mg/dL (0.0-0.2); BILIRUBIN,TOTAL 0.2 mg/dL (0.2-1.0); INDIRECT BILIRUBIN 0.1 mg/dL (0.0-1.1); TOTAL PROTEIN, SERUM 6.7 g/dL (6.4-8.2)
== END 2016-06-09 09:19 | disposition home or self-care (01) ==
LOC: ER 08:07
DX: R10.13 Epigastric pain (principal); R11.2 Nausea with vomiting, unspecified; E78.5 Hyperlipidemia, unspecified; F31.9 Bipolar disorder, unspecified; F17.200 Nicotine dependence, unspecified, uncomplicated; I12.9 Hypertensive chronic kidney disease with stage 1 through stage 4 chronic kidney disease, or unspecified chronic kidney disease; N18.9 Chronic kidney disease, unspecified; Z76.5 Malingerer [conscious simulation]; Z79.82 Long term (current) use of aspirin
CPT/HCPCS: 36415; 80048; 80076; 83690; 96372; 96374; 99284; A4606; J0500; J2405; J7040; Z7610

== ENCOUNTER 2016-06-09 13:15 | Emergency (ER) | payer OTHER ==
[~2016-06-09] VITALS: Ht 170.2 cm; Wt 70.3 kg
[2016-06-09 13:18] VITALS: BP 152/91
[2016-06-09] MEDS ORDERED: ONDANSETRON 4 MG TAB.RAPDIS SL ONE (14:00)
[2016-06-09] MEDS ORDERED: ONDANSETRON 4 MG TAB.RAPDIS ONE (14:13)
== END 2016-06-09 14:25 | disposition home or self-care (01) ==
LOC: ER 13:18
DX: R10.10 Upper abdominal pain, unspecified (principal); G89.29 Other chronic pain; R11.2 Nausea with vomiting, unspecified; E78.5 Hyperlipidemia, unspecified; I12.9 Hypertensive chronic kidney disease with stage 1 through stage 4 chronic kidney disease, or unspecified chronic kidney disease; N18.9 Chronic kidney disease, unspecified; F31.9 Bipolar disorder, unspecified; M54.9 Dorsalgia, unspecified; F17.210 Nicotine dependence, cigarettes, uncomplicated; Z79.82 Long term (current) use of aspirin; Z59.0 Homelessness
CPT/HCPCS: 99283; A4606; Q0162; Z7610

== ENCOUNTER 2016-06-16 06:40 | Emergency (ER) | payer OTHER ==
[~2016-06-16] VITALS: Ht 170.2 cm; Wt 68.0 kg
[2016-06-16 07:29] LABS: BASOPHILS % (AUTO) 0.2 % (0.0-2.0); DIFF TOTAL % 100 %; EOSINOPHILS # (AUTO) 0.3 /CMM (0.0-0.7); EOSINOPHILS % (AUTO) 4.4 % (0.0-6.0); HEMATOCRIT 29 % (39-51); HEMOGLOBIN 9.3 g/dL (13.5-17.5); MEAN CORPUSCULAR HEMOGLOBIN 25 PG (26.0-33.0); MEAN CORPUSCULAR HGB CONC 32 g/dl (31.0-36.0); MEAN CORPUSCULAR VOLUME 79 fL (80-96); MONOCYTES # (AUTO) 0.8 /CMM (0.1-1.30); MONOCYTES % (AUTO) 10.6 % (2.0-12.0); NEUTROPHILS # (AUTO) 5.3 /CMM (1.8-8.9); NEUTROPHILS % (AUTO) 70.8 % (43.0-81.0); PLATELET COUNT (AUTO) 321 /CMM (150-450); RED BLOOD CELL COUNT(AUTO) 3.73 MIL/uL (4.5-6.0); WHITE BLOOD COUNT (AUTO) 7.5 K/uL (4.3-11.0)
[2016-06-16 07:45] LABS: ALANINE AMINOTRANSFERASE 50 U/L (12-78); ALBUMIN 3.4 g/dL (3.4-5.0); ANION GAP 10 (5-14); ASPARTATE AMINOTRANSFERASE 13 U/L (15-37); BILIRUBIN,TOTAL 0.1 mg/dL (0.2-1.0); CALCIUM, SERUM 8.6 mg/dL (8.5-10.1); CARBON DIOXIDE 26 mmol/L (21-32); CHLORIDE 108 mmol/L (98-107); CREATININE 1.2 mg/dL (0.6-1.3); GFR 77 mL/min (>60); GLUCOSE 97 mg/dL (74-106); POTASSIUM 3.9 mmol/L (3.5-5.1); SODIUM SERUM 140 mmol/L (136-145); TOTAL PROTEIN, SERUM 6.9 g/dL (6.4-8.2); UREA NITROGEN, BLOOD 21 mg/dL (7-18)
[2016-06-16 07:47] LABS: INR 0.93 (0.87-1.13); TROPONIN I < 0.017 ng/mL (0.00-0.056)
[2016-06-16 07:49] LABS: INDIRECT BILIRUBIN 0.1 mg/dL (0.0-1.1)
[2016-06-16] MEDS ORDERED: IBUPROFEN 600 MG TABLET PO ONE ×2 (08:08→08:30)
[2016-06-16 08:37] VITALS: BP 166/114
== END 2016-06-16 08:38 | disposition home or self-care (01) ==
LOC: ER 06:44
DX: R07.9 Chest pain, unspecified (principal); I10 Essential (primary) hypertension; E78.5 Hyperlipidemia, unspecified; N18.9 Chronic kidney disease, unspecified; F31.9 Bipolar disorder, unspecified; F17.210 Nicotine dependence, cigarettes, uncomplicated; F12.10 Cannabis abuse, uncomplicated; Z79.82 Long term (current) use of aspirin
CPT/HCPCS: 36415; 71010; 80048; 80076; 84484; 85025; 85730; 93005; 99285; A4606; Z7610

== ENCOUNTER 2018-11-22 19:20 | Emergency (ER) | payer MEDICAID, OTHER ==
[~2018-11-22] VITALS: Ht 170.2 cm; Wt 63.5 kg
[~2018-11-22 19:20] MED LIST changes: +ASPI-1152 PO; -ASPI-991 PO
[2018-11-22 19:36] VITALS: BP 154/114
== END 2018-11-22 20:33 | disposition home or self-care (01) ==
LOC: ER 19:25
DX: S80.862A Insect bite (nonvenomous), left lower leg, initial encounter (principal); E78.5 Hyperlipidemia, unspecified; F31.9 Bipolar disorder, unspecified; I12.9 Hypertensive chronic kidney disease with stage 1 through stage 4 chronic kidney disease, or unspecified chronic kidney disease; N18.9 Chronic kidney disease, unspecified; F12.90 Cannabis use, unspecified, uncomplicated; F17.200 Nicotine dependence, unspecified, uncomplicated; Z79.899 Other long term (current) drug therapy; Z79.82 Long term (current) use of aspirin; W57.XXXA Bitten or stung by nonvenomous insect and other nonvenomous arthropods, initial encounter; Y93.89 Activity, other specified; Y92.89 Other specified places as the place of occurrence of the external cause; Y99.8 Other external cause status

== ENCOUNTER 2018-11-25 18:12 | Emergency (ER) | payer MEDICAID ==
[~2018-11-25] VITALS: Ht 175.3 cm; Wt 71.2 kg
--- NOTE | 2018-11-25 18:14 | NUR ---
PT [id number], HOMELESS, C/O ABD PAIN, VOMITING x 2 DAYS, -DIARRHEA, BS 107, PT IS AAOX3, NOT IN RESPIRATORY DISTRESS, HOOKED TO MONITOR, KEPT RESTED AND COMFORTABLE, WILL CONTINUE TO MONITOR.
--- NOTE | 2018-11-25 18:25 | NUR ---
PT IV LINE ESTABLISHED, BLOOD DRAWNED AND SENT TO LAB.
[2018-11-25] MEDS ORDERED: IV NS 0.9% 500 ML BAG IV ONE (19:00)
[2018-11-25] MEDS ORDERED: KETOROLAC TROMETHAMINE INJ 30 MG/ML VIAL IV ONE (19:00)
[2018-11-25] MEDS ORDERED: ONDANSETRON HCL/PF 4 MG/2 ML VIAL IVP ONE (19:00)
[2018-11-25] MEDS ORDERED: KETOROLAC TROMETHAMINE INJ 30 MG/ML VIAL ONE (19:01)
[2018-11-25] MEDS ORDERED: ONDANSETRON HCL/PF 4 MG/2 ML VIAL ONE (19:02)
[2018-11-25 19:14] LABS: BASOPHILS % (AUTO) 0.5 % (0.0-2.0); EOSINOPHILS % (AUTO) 1.9 % (0.0-6.0); HEMATOCRIT 43 % (39-51); HEMOGLOBIN 14.6 g/dL (13.5-17.5); LYMPHOCYTES # (AUTO) 1.3 /CMM (0.8-4.8); LYMPHOCYTES % (AUTO) 20.2 % (20.0-44.0); MEAN CORPUSCULAR HGB CONC 34 g/dl (31.0-36.0); MEAN CORPUSCULAR VOLUME 87 fL (80-96); MONOCYTES # (AUTO) 0.7 /CMM (0.1-1.30); MONOCYTES % (AUTO) 10.2 % (2.0-12.0); NEUTROPHILS # (AUTO) 4.5 /CMM (1.8-8.9); NEUTROPHILS % (AUTO) 67.2 % (43.0-81.0); PLATELET COUNT (AUTO) 240 /CMM (150-450); RED BLOOD CELL COUNT(AUTO) 4.93 MIL/uL (4.5-6.0); WHITE BLOOD COUNT (AUTO) 6.7 K/uL (4.3-11.0)
[2018-11-25 19:24] LABS: CREATININE 1.4 mg/dL (0.6-1.3); POTASSIUM 3.3 mmol/L (3.5-5.1)
[2018-11-25 19:40] LABS: ALBUMIN 4.1 g/dL (3.4-5.0); BILIRUBIN,DIRECT 0.1 mg/dL (0.0-0.2); BILIRUBIN,TOTAL 0.5 mg/dL (0.2-1.0); TOTAL PROTEIN, SERUM 7.7 g/dL (6.4-8.2)
--- NOTE | 2018-11-25 20:50 | NUR ---
IV removed. Catheter intact and site benign. Pressure and 4x4 applied to site. No bleeding noted. Patient discharged to home in stable condition. Written and verbal after care instructions given. Patient verbalizes understanding of instruction.
[2018-11-25 20:51] VITALS: BP 155/99
== END 2018-11-25 20:52 | disposition home or self-care (01) ==
LOC: ER 18:15
DX: R11.2 Nausea with vomiting, unspecified (principal); G89.29 Other chronic pain; R10.9 Unspecified abdominal pain; E78.5 Hyperlipidemia, unspecified; F31.9 Bipolar disorder, unspecified; I12.9 Hypertensive chronic kidney disease with stage 1 through stage 4 chronic kidney disease, or unspecified chronic kidney disease; N18.9 Chronic kidney disease, unspecified; F12.90 Cannabis use, unspecified, uncomplicated; F17.200 Nicotine dependence, unspecified, uncomplicated; Z59.0 Homelessness; Z79.899 Other long term (current) drug therapy; Z79.82 Long term (current) use of aspirin
CPT/HCPCS: 36415; 80048; 80076; 83690; 85025; 96374; 96375; 99283; J1885; J2405; J7040

== ENCOUNTER 2018-12-02 10:25 | Emergency (ER) | payer MEDICAID ==
[2018-12-02] MEDS ORDERED: LIDOCAINE VISCOUS 2% UD 15 ML UDC ONE (11:23)
[2018-12-02] MEDS ORDERED: MAG HYDROX/AL HYDROX/SIMETH 30 ML UDC PO ONE (11:30)
[2018-12-02] MEDS ORDERED: LIDOCAINE VISCOUS 2% UD 15 ML UDC MM ONE (11:30)
[2018-12-02] MEDS ORDERED: ACETAMINOPHEN ES 500 MG TABLET ONE (13:10)
[2018-12-02] MEDS ORDERED: ACETAMINOPHEN ES 500 MG TABLET PO ONE (13:30)
== END 2018-12-02 13:15 | disposition home or self-care (01) ==
DX: G89.29 Other chronic pain (principal); R10.9 Unspecified abdominal pain; E78.5 Hyperlipidemia, unspecified; F31.9 Bipolar disorder, unspecified; I12.9 Hypertensive chronic kidney disease with stage 1 through stage 4 chronic kidney disease, or unspecified chronic kidney disease; N18.9 Chronic kidney disease, unspecified; F12.90 Cannabis use, unspecified, uncomplicated; F17.210 Nicotine dependence, cigarettes, uncomplicated; Z79.899 Other long term (current) drug therapy; Z79.82 Long term (current) use of aspirin

== ENCOUNTER 2019-02-13 15:12 | Inpatient (IN) | payer MEDICAID ==
[~2019-02-13] VITALS: Ht 170.2 cm; Wt 71.4 kg
--- NOTE | 2019-02-13 15:20 | NUR ---
C/O FLANK PAIN x 1 WEEK. PATIENT A/OX4, BREATHING EVEN AND UNLABORED, NO SOB NOTED, NEEDS ATTENDED.
[2019-02-13 15:39] LABS: APPEARANCE,URINE Clear (CLEAR); BILIRUBIN,URINE Negative (NEGATIVE); BLOOD, URINE Negative Ery/uL (NEGATIVE); COLOR,URINE Light yellow (YELLOW); KETONES,URINE Negative (NEGATIVE); LEUKOCYTE ESTERASE ,URINE Negative (NEGATIVE); NITRITE, URINE Negative (NEGATIVE); PROTEIN,URINE Negative (NEGATIVE); UGLUCOSE Negative (NEGATIVE); UROBILINOGEN,URINE 0.2 EU/dL (0.2)
[2019-02-13 15:42] LABS: BASOPHILS % (AUTO) 0.6 % (0.0-2.0); EOSINOPHILS % (AUTO) 1.7 % (0.0-6.0); HEMATOCRIT 40 % (39-51); HEMOGLOBIN 13.4 g/dL (13.5-17.5); LYMPHOCYTES # (AUTO) 1.1 /CMM (0.8-4.8); LYMPHOCYTES % (AUTO) 16.2 % (20.0-44.0); MEAN CORPUSCULAR HGB CONC 34 g/dl (31.0-36.0); MEAN CORPUSCULAR VOLUME 87 fL (80-96); MONOCYTES # (AUTO) 0.7 /CMM (0.1-1.30); NEUTROPHILS # (AUTO) 4.8 /CMM (1.8-8.9); NEUTROPHILS % (AUTO) 70.5 % (43.0-81.0); PLATELET COUNT (AUTO) 258 /CMM (150-450); RED BLOOD CELL COUNT(AUTO) 4.56 MIL/uL (4.5-6.0); WHITE BLOOD COUNT (AUTO) 6.8 K/uL (4.3-11.0)
[2019-02-13 15:58] LABS: ALBUMIN 3.5 g/dL (3.4-5.0); BILIRUBIN,DIRECT 0.1 mg/dL (0.0-0.2); BILIRUBIN,TOTAL 0.3 mg/dL (0.2-1.0); CALCIUM, SERUM 9.3 mg/dL (8.5-10.1); CREATININE 2.1 mg/dL (0.6-1.3); TOTAL PROTEIN, SERUM 7.6 g/dL (6.4-8.2)
[2019-02-13 15:59] LABS: POTASSIUM 2.6 mmol/L (3.5-5.1)
--- NOTE | 2019-02-13 16:44 | NUR ---
PT TAKEN TO CT
[2019-02-13] MEDS ORDERED: POTASSIUM CL. PREMIX PERIPHER. 50 ML ONE ×2 (16:59→17:02)
[2019-02-13] MEDS: POTASSIUM CL. PREMIX PERIPHER. 50 ML IV SCH ×2 (17:09→18:00)
--- NOTE | 2019-02-13 17:14 | NUR ---
CALLED HOUSE SUP FOR BED
--- NOTE | 2019-02-13 17:55 | NUR ---
Patient is resting comfortably in bed with eyes closed. Easily aroused. VSS
[2019-02-13] MEDS ORDERED: Z GUARD REMEDY 2 OZ OINT TP PRN (18:30)
[2019-02-13] MEDS ORDERED: MAGNESIUM HYDROXIDE 30 ML UDC PO PRN (18:30)
[2019-02-13] MEDS ORDERED: MAG HYDROX/AL HYDROX/SIMETH 30 ML UDC PO PRN (18:30)
--- NOTE | 2019-02-13 18:54 | NUR ---
Patient is resting comfortably in bed with eyes closed. Easily aroused. VSS
--- NOTE | 2019-02-13 19:25 | NUR ---
REPORT REC'D FROM MARTHA GUZMAN.
--- NOTE | 2019-02-13 19:32 | NUR ---
CALLED HOUSE SUP FOR BED
--- NOTE | 2019-02-13 19:44 | NUR ---
Lennie lindsey in [facility] - 02/13/19 at 1946 by JOAN [id number]
--- NOTE | 2019-02-13 19:45 | NUR ---
PT APPEARS TO BE RESTING COMFORTABLY WITH NO S/S OF PAIN OR DISTRES.
--- NOTE | 2019-02-13 19:47 | NUR ---
CALLING REPORT TO TELE NURSE.
--- NOTE | 2019-02-13 20:00 | NUR ---
RN Notes Admitted patient from ER, awake, alert and oriented x3, on room air with good saturation. Abdominal pain at tolerable level at this time, 3/10. Denies nausea and vomiting. Vital signs stable, afebrile. Telemonitor reads Sinus rhythm with heart rate at 89. IV access on left AC patent and intact. Skin assessment done with pictures taken and filed in the chart. Plan of care discussed with patient and verbalized understanding. Patient feels weak, safety measures and fall precaution in place. All needs attended. Will continue to monitor patient.
[2019-02-13 20:15] VITALS: BP 129/94
[2019-02-13] MEDS: ACETAMINOPHEN 325 MG TABLET PO PRN (21:22)
[2019-02-13] MEDS: IV NS 0.9% 1,000 ML IV PRN (21:22)
--- NOTE | 2019-02-13 21:22 | NUR ---
RN Notes Patient verbalized of abdominal and flank pain, 3-10. Patient said that he's ok with Tylenol. Tylenol 650 mg tab given PO and tolerated well.
[2019-02-13] MEDS: MORPHINE SULFATE INJ 2 MG/ML DISP.SYRIN IV PRN (22:56)
--- NOTE | 2019-02-13 22:56 | NUR ---
RN Notes Patient complains of abdominal pain 11/11. Morphine Sulfate 1mg given IVP. Will continue to monitor patient.
[2019-02-14] VITALS: BP 135/89
[2019-02-14 04:00] VITALS: BP 137/87
--- NOTE | 2019-02-14 06:28 | NUR ---
RN Notes Patient sleep well after morphine was given for abdominal pain. Vital signs stable, afebrile. Current diet tolerated with some nausea. Voiding well. Patient feels weak, fall precaution observed, with call light within reach. All needs met. Will continue to monitor and will endorse accordingly.
--- NOTE | 2019-02-14 07:00 | NUR ---
CRM MANAGER OPENING NOTES RECEIVED PT LYING ON BED,ALERT/ORIENTED X3.ON TELE HR IS 90'S WITH NSR.NO SOB AND ACUTE DISTRESS NOTED ON ROOM AIR,TOLERATING WELL.IV LINE IS ON LEFT AC G18 WITH NS @75CC/HR IS RUNNING.SITE IS CLEAN,DRY AND INTACT.NO INFILTRATION NOTED.BED IS IN LOW POSITION AND LOCKED,CALL LIGHT IS WITHIN REACH.WILL CONTINUE TO MONITOR THE PT CLOSELY.
[2019-02-14 07:04] LABS: BASOPHILS % (AUTO) 0.6 % (0.0-2.0); EOSINOPHILS % (AUTO) 2.2 % (0.0-6.0); HEMATOCRIT 35 % (39-51); HEMOGLOBIN 12.1 g/dL (13.5-17.5); LYMPHOCYTES # (AUTO) 1.7 /CMM (0.8-4.8); LYMPHOCYTES % (AUTO) 24.2 % (20.0-44.0); MEAN CORPUSCULAR HGB CONC 34 g/dl (31.0-36.0); MEAN CORPUSCULAR VOLUME 85 fL (80-96); MONOCYTES # (AUTO) 0.7 /CMM (0.1-1.30); MONOCYTES % (AUTO) 10.9 % (2.0-12.0); NEUTROPHILS # (AUTO) 4.2 /CMM (1.8-8.9); NEUTROPHILS % (AUTO) 62.1 % (43.0-81.0); PLATELET COUNT (AUTO) 221 /CMM (150-450); RED BLOOD CELL COUNT(AUTO) 4.13 MIL/uL (4.5-6.0); WHITE BLOOD COUNT (AUTO) 6.8 K/uL (4.3-11.0)
[2019-02-14 07:34] LABS: CALCIUM, SERUM 8.4 mg/dL (8.5-10.1); CREATININE 1.7 mg/dL (0.6-1.3); PHOSPHORUS 2.1 mg/dL (2.5-4.9)
[2019-02-14 07:41] LABS: POTASSIUM 2.4 mmol/L (3.5-5.1)
[2019-02-14 07:52] LABS: THYROID STIMULATING HORMONE 0.812 uIU/mL (0.358-3.74)
--- NOTE | 2019-02-14 07:55 | NUR ---
SEAT JOINER NOTES @0758 LAB CALLED AND INFORMED POTASSIUM LEVEL IS 2.4 TODAY. @[address]DANNY CASAS,COLLEGE FOOTBALL COACH,SAID WILL SEE THE PT TODAY.
[2019-02-14 08:00] VITALS: BP 139/91
--- NOTE | 2019-02-14 08:09 | NUR ---
WOUND CARE CONSULT: PT PRESENTS CONTINENT AND INDEPENDENT WITH BED MOBILITY. PT NOTED TO HAVE DRY CLOSED WOUND TO RT THUMB AND TO RT INDEX FINGER, SCARS TO LEFT LOWER LEG, PRESENT ON ADMISSION. PT STATES WANTS TO SOAK HIS HAND IN BET[place]. DEFER TO . WILL SEE PRN. Addendum: 02/14/19 at 0811 by MYRANDA KANG WNDNU Amended: Links added.
[2019-02-14] MEDS: NICOTINE PATCH (14MG) 14 MG PATCH.TD24 TD SCH (08:17)
[2019-02-14] MEDS: PANTOPRAZOLE 40 MG VIAL IV SCH (08:17)
[2019-02-14] MEDS: POTASSIUM CL. PREMIX PERIPHER. 50 ML IV SCH ×8 (08:54→22:41)
[2019-02-14] MEDS: MORPHINE SULFATE INJ 2 MG/ML DISP.SYRIN IV PRN (09:05)
[2019-02-14] MEDS: POTASSIUM PHOSPHATE MM 5 MMOL in IV D5W 100 ML IV SCH ×2 (11:08→13:18)
[2019-02-14 12:00] VITALS: BP 137/98
--- NOTE | 2019-02-14 15:07 | NUR ---
Social service consult requested by EZEKIEL Richmond for homelessness. Pt. is a 53 year old male who was admitted to [facility] for Hypokalemia. SW met with the pt. bedside. Pt. is alert and oriented x 4. Pt. is cooperative and pleasant with SW during the assessment. Pt. states he was residing with friends but cannot go back there. Pt. is homeless. SW offered pt. fci placement, however pt. declined stating, he will find another place to go to." Pt. receives GR and Food stamps. Pt. denies drug and alcohol use. Pt. smokes a pack of cigarettes per day. Pt. denies any psychiatric diagnosis and hospitalizations. Pt. is ambulatory and independent with his ADL's. No other social service needs are requested at this time. SW to provide pt. with homeless resources prior to discharge.
[2019-02-14 15:13] LABS: CALCIUM, SERUM 8.5 mg/dL (8.5-10.1); CREATININE 1.6 mg/dL (0.6-1.3)
[2019-02-14 15:17] LABS: POTASSIUM 2.7 mmol/L (3.5-5.1)
--- NOTE | 2019-02-14 15:59 | NUR ---
LOOM OPERATOR APPRENTICE NOTES PER FINISH INSPECTOR STEPHON CORONEL ,ORDER A PHYSICIAN CONSULTATION WITH CATHERINE FOR DRY CLOSED WOUND ON RIGHT THUMP AND INDEX.
[2019-02-14 16:00] VITALS: BP 145/93
[2019-02-14] MEDS ORDERED: POTASSIUM CHLORIDE 20 MEQ TAB.PRT.SR PO ONE (16:00)
--- NOTE | 2019-02-14 16:00 | NUR ---
EQUIP MAINT ENG NOTES ASBESTOS REMOVAL SUPERVISOR STEPHON CORONEL MADE AWARE ABOUT THE POTASSIUM 2.7,ORDERED IV POTASSIUM 40MEQ ONCE.NEW ORDERS NOTED AND CARRIED OUT.
[2019-02-14 16:10] LABS: APPEARANCE,URINE CLEAR (CLEAR); BILIRUBIN,URINE NEGATIVE (NEGATIVE); BLOOD, URINE NEGATIVE Ery/uL (NEGATIVE); COLOR,URINE YELLOW (YELLOW); KETONES,URINE NEGATIVE (NEGATIVE); LEUKOCYTE ESTERASE ,URINE NEGATIVE (NEGATIVE); NITRITE, URINE NEGATIVE (NEGATIVE); PROTEIN,URINE NEGATIVE (NEGATIVE); UGLUCOSE NEGATIVE (NEGATIVE); UROBILINOGEN,URINE 0.2 EU/dL (0.2)
[2019-02-14 16:17] LABS: CREATININE, URINE 79.2 MG/DL (30.0-125.0); URINE TOTAL PROTEIN 6.9 mg/dL (0-11.9)
[2019-02-14 16:31] LABS: EOSINOPHIL,URINE None Seen
--- NOTE | 2019-02-14 18:35 | NUR ---
GRAIN ELEVATOR MOTOR STARTER CLOSING NOTES PT IS LYING ON BED WITH IV POTASSIUM IS RUNNING,NO IV INFILTRATION NOTED.ON NSR.STILL ON CLEAR LIQUIDS.TOLERATING WELL.RESPIRATION IS EVEN AND NONLABORED.NO SIGNIFICANT CHANGES NOTED IN THE SHIFT.WILL ENDORSE TO COMMERCIAL CORRESPONDENT RN FOR DALE. Addendum: 02/14/19 at 1837 by EMANUEL WOLFE RN WILL ENDORSE TO COMMERCIAL CORRESPONDENT RN TO CONTINUE IV POTASSIUM ORDERED.
[2019-02-14 20:00] VITALS: BP 137/97
[2019-02-14] MEDS: IV NS 0.9% 1,000 ML IV PRN (22:40)
[2019-02-14] MEDS: POLYETHYLENE GLYCOL 3350 17 GM POWD.PACK PO SCH (22:41)
[2019-02-15] VITALS: BP_SYST 118; BP_SYST 124; BP_DIAS 61; BP_DIAS 78
[2019-02-15 01:59] LABS: ALBUMIN 2.8 g/dL (3.4-5.0); BILIRUBIN,DIRECT 0.1 mg/dL (0.0-0.2); BILIRUBIN,TOTAL 0.2 mg/dL (0.2-1.0); TOTAL PROTEIN, SERUM 6.4 g/dL (6.4-8.2)
[2019-02-15 04:00] VITALS: BP_SYST 130; BP_SYST 151; BP_DIAS 79; BP_DIAS 81
--- NOTE | 2019-02-15 06:23 | NUR ---
TELE-1/STEAM TRAP WORKER PT REQUESTING FOR LAB DRAW AFTER BREAKFAST WILL ENDORSE TO AM SHIFT.
[2019-02-15 08:00] VITALS: BP 128/68
--- NOTE | 2019-02-15 08:06 | NUR ---
DIRECTOR OF SERVICES NOTE RECEIVED PATIENT IN BED, SLEEPING COMFORTABLE AT THIS TIME, ON TELE MONITOR SR HR 81, L FA ON IV FLUIDS, BED LOCKED ON LOWEST POSITION, CALL LIGHT WITHIN REACH, CONTINUE TO MONITOR.
[2019-02-15] MEDS: NICOTINE PATCH (14MG) 14 MG PATCH.TD24 TD SCH (08:38)
[2019-02-15] MEDS: PANTOPRAZOLE 40 MG VIAL IV SCH (08:38)
[2019-02-15] MEDS: POTASSIUM CL. PREMIX PERIPHER. 50 ML IV SCH ×3 (10:54→13:02)
--- NOTE | 2019-02-15 11:00 | NUR ---
FORM TAMPER OPERATOR NOTE JACKLYN WOUND NURSE AT BEDSIDE WITH NEW TX ORDERED ,WILL F\U
[2019-02-15 11:38] LABS: BASOPHILS % (AUTO) 0.6 % (0.0-2.0); EOSINOPHILS % (AUTO) 2.2 % (0.0-6.0); HEMATOCRIT 36 % (39-51); HEMOGLOBIN 12.3 g/dL (13.5-17.5); LYMPHOCYTES # (AUTO) 1.4 /CMM (0.8-4.8); LYMPHOCYTES % (AUTO) 22.7 % (20.0-44.0); MEAN CORPUSCULAR HGB CONC 34 g/dl (31.0-36.0); MEAN CORPUSCULAR VOLUME 86 fL (80-96); MONOCYTES # (AUTO) 0.8 /CMM (0.1-1.30); NEUTROPHILS # (AUTO) 3.8 /CMM (1.8-8.9); NEUTROPHILS % (AUTO) 61.5 % (43.0-81.0); PLATELET COUNT (AUTO) 221 /CMM (150-450); RED BLOOD CELL COUNT(AUTO) 4.21 MIL/uL (4.5-6.0); WHITE BLOOD COUNT (AUTO) 6.1 K/uL (4.3-11.0)
[2019-02-15 11:55] LABS: ALBUMIN 2.8 g/dL (3.4-5.0); BILIRUBIN,TOTAL 0.2 mg/dL (0.2-1.0); CALCIUM, SERUM 8.4 mg/dL (8.5-10.1); CREATININE 1.5 mg/dL (0.6-1.3); MAGNESIUM 1.7 mg/dL (1.8-2.4); PHOSPHORUS 1.2 mg/dL (2.5-4.9); POTASSIUM 3.7 mmol/L (3.5-5.1); TOTAL PROTEIN, SERUM 6.3 g/dL (6.4-8.2)
[2019-02-15 12:00] VITALS: BP 130/76
[2019-02-15 12:00] LABS: THYROID STIMULATING HORMONE 1.111 uIU/mL (0.358-3.74)
[2019-02-15] MEDS: IV NS 0.9% 1,000 ML IV PRN (12:27)
[2019-02-15] MEDS ORDERED: INFLUENZA VACCINE 2019-20 0.5 ML DISP.SYRIN IM ONE (13:00)
[2019-02-15] MEDS: Magnesium 1GM/D5W 100ML PREMIX 100 ML IV SCH ×2 (13:39→14:39)
[2019-02-15 16:00] VITALS: BP 137/86
[2019-02-15] MEDS ORDERED: NEUTRA PHOS 1 POWD.PACKET PO ONE (16:00)
--- NOTE | 2019-02-15 19:25 | NUR ---
MS/RN NOTES PATIENT IN BED, RESTING COMFORTABLY AT THIS TIME, A/O X4, NO S/S OF ACUTE DISTRESS NOTED, BREATHING EVEN AND UNLABORED. NO SOB NOTED. PATIENT DENIES ANY PAIN AT THIS TIME. IV SITE WITH NO S/S OF INFECTION INFILTRATION, RUNNING WITH FLUIDS ORDERED, ON TELE MONITORING WITH SINUS RHYTHM. SAFETY MAINTAINED, BED AT THE LOWEST LOCKED POSITION, CLEAN AND DRY. CALL LIGHT WITHIN REACH. WILL CONTINUE TO MONITOR PER PLAN OF CARE.
[2019-02-15] MEDS: POLYETHYLENE GLYCOL 3350 17 GM POWD.PACK PO SCH (21:35)
[2019-02-15 22:00] VITALS: BP 146/72
--- NOTE | 2019-02-15 22:53 | NUR ---
PATIENT COMPLAIN OF ABDOMINAL PAIN 11/11 AT THIS TIME, DR PATTERSON ON THE FLOOR, RELAYED TO HER THAT PATIENT ONLY HAVE TYLENOL FOR HIS PAIN, DR PATTERSON WITH NEW ORDER. NOTED AND CARRIED OUT.
[2019-02-15] MEDS ORDERED: MORPHINE SULFATE INJ 2 MG/ML DISP.SYRIN IV PRN (23:00)
[2019-02-16] VITALS: BP 130/80
[2019-02-16] MEDS: ONDANSETRON HCL/PF 4 MG/2 ML VIAL IVP PRN ×2 (00:52→19:34)
[2019-02-16 04:00] VITALS: BP 139/78
[2019-02-16] MEDS: IV NS 0.9% 1,000 ML IV PRN (04:48)
[2019-02-16 05:07] LABS: T3, FREE 2.9 pg/mL (2.0-4.4)
--- NOTE | 2019-02-16 07:06 | NUR ---
TELE/RN NOTES PATIENT IN BED, AWAKE, A/O X4, NO S/S OF ACUTE DISTRESS NOTED, BREATHING EVEN AND UNLABORED. NO SOB NOTED. PATIENT DENIES ANY PAIN AT THIS TIME. IV SITE WITH NO S/S OF INFECTION INFILTRATION, RUNNING WITH FLUIDS ORDERED, ON TELE MONITORING WITH SINUS RHYTHM. ALL DUE MEDS GIVEN ORDERED, TREATMENTS RENDERED, TOLERATED WELL. SAFETY MAINTAINED, BED AT THE LOWEST LOCKED POSITION, CLEAN AND DRY. CALL LIGHT WITHIN REACH. WILL ENDORSE TO AM SHIFT NURSE FOR DALE.
[2019-02-16 08:00] VITALS: BP 154/99
[2019-02-16] MEDS: PANTOPRAZOLE 40 MG VIAL IV SCH (08:11)
[2019-02-16] MEDS: NICOTINE PATCH (14MG) 14 MG PATCH.TD24 TD SCH (08:12)
[2019-02-16 08:43] LABS: BASOPHILS % (AUTO) 0.5 % (0.0-2.0); CALCIUM, SERUM 8.6 mg/dL (8.5-10.1); CREATININE 1.5 mg/dL (0.6-1.3); EOSINOPHILS % (AUTO) 2.6 % (0.0-6.0); HEMATOCRIT 39 % (39-51); HEMOGLOBIN 13.1 g/dL (13.5-17.5); LYMPHOCYTES # (AUTO) 1.3 /CMM (0.8-4.8); LYMPHOCYTES % (AUTO) 20.7 % (20.0-44.0); MAGNESIUM 1.9 mg/dL (1.8-2.4); MEAN CORPUSCULAR HGB CONC 34 g/dl (31.0-36.0); MEAN CORPUSCULAR VOLUME 87 fL (80-96); MONOCYTES # (AUTO) 0.5 /CMM (0.1-1.30); MONOCYTES % (AUTO) 8.2 % (2.0-12.0); NEUTROPHILS # (AUTO) 4.3 /CMM (1.8-8.9); PLATELET COUNT (AUTO) 218 /CMM (150-450); POTASSIUM 4.1 mmol/L (3.5-5.1); RED BLOOD CELL COUNT(AUTO) 4.49 MIL/uL (4.5-6.0); WHITE BLOOD COUNT (AUTO) 6.4 K/uL (4.3-11.0)
[2019-02-16 10:07] LABS: *SPE ALBUMIN 2.9 g/dL (2.9-4.4); *SPE ALPHA-1-GLOBULIN 0.2 g/dL (0.0-0.4); *SPE ALPHA-2-GLOBULIN 0.7 g/dL (0.4-1.0); *SPE BETA GLOBULIN 0.9 g/dL (0.7-1.3); *SPE GLOBULIN, TOTAL 2.9 g/dL (2.2-3.9); *SPE M-SPIKE Not Observed g/dL (Not Observed)
--- NOTE | 2019-02-16 10:27 | NUR ---
BEATRICE met with the pt. bedside to discuss discharge planning. Per pt. he will call his sister Deborah and go to her house upon discharge. BEATRICE did provide the pt. with the following homeless/jail resources: [facility] located at [address] ; [facility], [address] [place] ; [facility], [address] ; [facility] Homeless Resource Directory which includes food stamps, transitional housing, showers and hot meals etc; Mental Health clinics such as [facility] ; [facility] ; Health clinics;[facility] and Alcohol treatment centers such as [facility], ; [facility] Substance Abuse Hotline and [facility] . Homeless patient waiver form was placed in pt's chart for pt. to sign upon discharge.
[2019-02-16 12:00] VITALS: BP 140/92
[2019-02-16 12:06] LABS: PTH, INTACT 49 pg/mL (15-65)
[2019-02-16] MEDS ORDERED: K PHOS NEUTRAL 250 MG TABLET PO ONE (14:00)
[2019-02-16 16:00] VITALS: BP 144/94
[2019-02-16] MEDS ORDERED: POLY17PO4 PO (16:34)
[2019-02-16] MEDS: ENSURE ENLIVE 237 ML LIQUID (VANILLA) PO SCH (17:00)
--- NOTE | 2019-02-16 18:00 | NUR ---
RN NOTE: PATIENT REMAINS ALERT AWAKE ORIENTED X 3. ON ROOM AIR, NO BREATHING DISTRESS NOTED. DENIES CHEST PAIN & DISCOMFORT. PT DID NOT VERBALIZE OF ABDOMINAL DISCOMFORT/PAIN DURING SHIFT. NO FALL/INJURY NOTED. PLAN TO DISCHARGE TO SISTER'S HOME. DISCHARGE INSTRUCTIONS GIVEN TO THE PATIENT. VERBALIZE TO UNDERSTAND. PLACED CALL TO LIZZ WRIGHT AT [phone] MULTIPLE TIMES, NO OPTION TO LEAVE VOICE MASSAGE. PATIENT MADE AWARE. WILL TRY AGAIN. CONTINUE WITH PLAN OF CARE.
--- NOTE | 2019-02-16 18:33 | NUR ---
RN NOTE: LEFT MASSAGE FOR STEPHON MCCRARY OPERATOR ENGINEER REGARDING WAITING FOR SISTER TO ANSWER PHONE CALL TO STORY WRITER PATIENT. CONTINUE TO MONITOR.
[2019-02-16] MEDS: ACETAMINOPHEN 325 MG TABLET PO PRN (19:27)
--- NOTE | 2019-02-16 19:27 | NUR ---
STORAGE BRINE WORKER OPENING NOTES RECEIVED PATIENT IN BED, WATCHING TV, ALERT, ORIENTED X E. BREATHING EVEN AND UNLABORED. NOT IN ANY DISTRESS. ON ROOM AIR. TELE MONITOR IN PLACE- SINUS RHYTHM 95. PERIPHERAL IV INFUSING AT 75ML/HR. PATIENT COMPLAINING OF MILD SIDED PAIN AND REQUESTED FOR TYLENOL- GIVEN ORDERED. SAFETY MEASURES IN PLACE; CALL LIGHT WITHIN REACH. BED IN LOW, LOCKED POSITION. WILL CONTINUE TO MONITOR ACCORDINGLY
--- NOTE | 2019-02-16 19:34 | NUR ---
RN NOTES PATIENT REPORTED THAT HE VOMITED X 1. ZOFRAN 4MG IV GIVEN ORDERED. WILL CONTINUE TO MONITOR
--- NOTE | 2019-02-16 19:50 | NUR ---
RN NOTES MADE A CALL TO PATIENT'S SISTER, LIZZ AT [phone] REGARDING PATIENT'S DISCHARGE, TWICE, BUT NO ANSWER, JUST KEEPS ON RINGING. NO OPTION TO LEAVE MESSAGE
[2019-02-16 20:00] VITALS: BP 145/97
[2019-02-16] MEDS: POLYETHYLENE GLYCOL 3350 17 GM POWD.PACK PO SCH (21:52)
[2019-02-17] VITALS: BP 103/68
[2019-02-17] MEDS: IV NS 0.9% 1,000 ML IV PRN (00:20)
[2019-02-17 04:00] VITALS: BP 136/87
--- NOTE | 2019-02-17 07:28 | NUR ---
FINGERPRINT TECHNICIAN CLOSING NOTES PATIENT IN BED, SLEEPING. BREATHING EVEN AND UNLABORED. NOT IN ANY DISTRESS. ON ROOM AIR SATURATING WELL. TELE MONITOR IN PLACE- SINUS RHYTHM 76. PERIPHERAL IV INFUSING AT 75ML/HR. SAFETY MEASURES IN PLACE. CALL LIGHT WITHIN REACH. BED IN LOW, LOCKED POSITION. ENDORSED DALE TO AM RN
--- NOTE | 2019-02-17 07:38 | NUR ---
ADMINISTRATOR OF HOME HEALTH NOTES OPENING PATIENT IN BED SLEEPING, ABLE TO WAKE UP WHEN NAME CALLED. A/OX3 ON ROOM AIR. SINUS RHYTHM 73. NO SOB OR DISCOMFORT NOTED AT THIS TIME. CALL LIGHT WITHIN REACH BED AT THE LOWEST POSITION LOCKED.
[2019-02-17 08:00] VITALS: BP 137/86
[2019-02-17] MEDS: NICOTINE PATCH (14MG) 14 MG PATCH.TD24 TD SCH (08:56)
[2019-02-17] MEDS: PANTOPRAZOLE 40 MG VIAL IV SCH (08:56)
[2019-02-17] MEDS: ENSURE ENLIVE 237 ML LIQUID (VANILLA) PO SCH (09:10)
--- NOTE | 2019-02-17 09:38 | NUR ---
CRYSTAL GRINDER NOTES CALLED LIZZ PATIENT `S SISTER REGARDING HIS DISCHARGE , NO ONE ANSWERED THE CALL AND THERE WAS NO VOICE MAIL SET UP TO LEAVE THE message.
[2019-02-17] MEDS ORDERED: K PHOS NEUTRAL 250 MG TABLET PO ONE (10:30)
[2019-02-17] MEDS: ACETAMINOPHEN 325 MG TABLET PO PRN (11:45)
--- NOTE | 2019-02-17 12:30 | NUR ---
MS RN NOTES PATIENT SIGNED THE PAPER REFUSING TO GO TO RETIREMENT. PATIENT WAS STABLE AT THE TIME HE LEFT.
== END 2019-02-17 14:53 | disposition home or self-care (01) | DRG 254 ==
LOC: ER 15:13 → TELE1 19:49 → MEDSG1 02-17 10:11
PROVIDERS: ADMIT Registered Nurse; ATTEND Registered Nurse
DX: K58.9 Irritable bowel syndrome, unspecified (principal); N17.0 Acute kidney failure with tubular necrosis; E87.3 Alkalosis; E83.39 Other disorders of phosphorus metabolism; E78.5 Hyperlipidemia, unspecified; I12.9 Hypertensive chronic kidney disease with stage 1 through stage 4 chronic kidney disease, or unspecified chronic kidney disease; N18.9 Chronic kidney disease, unspecified; G89.29 Other chronic pain; E87.6 Hypokalemia; Z59.0 Homelessness; F17.210 Nicotine dependence, cigarettes, uncomplicated; D64.9 Anemia, unspecified; K59.00 Constipation, unspecified; F31.9 Bipolar disorder, unspecified; Z79.82 Long term (current) use of aspirin; Z79.899 Other long term (current) drug therapy; F19.10 Other psychoactive substance abuse, uncomplicated; Z98.890 Other specified postprocedural states; K83.9 Disease of biliary tract, unspecified
CPT/HCPCS: 36415; 76700-TC; 80048-TC; 80053-TC; 80061-TC; 80076-TC; 81000-TC; 82247-TC; 82248-TC; 82436-TC; 82550-TC; 82570-TC; 83690-TC; 83735-TC; 83935-TC; 83970; 84100-TC; 84132-TC; 84133-TC; 84155; 84155-TC; 84165; 84300-TC; 84439-TC; 84443-TC; 84481; 85025-TC; 87081-TC; C9113; G0378; J2270; J2405; J3475; J3480; J3490; J7030; J7060; Q2036

== ENCOUNTER 2019-02-21 13:45 | Emergency (ER) | payer MEDICAID ==
[~2019-02-21] VITALS: Ht 170.2 cm; Wt 70.3 kg
[~2019-02-21 13:45] MED LIST changes: -AMLO10TA4 PO; -ASPI-1152 PO; +POLY17PO4 PO; -SIMV20TA2 PO
--- NOTE | 2019-02-21 14:02 | NUR ---
BIBSELF C/O TRANG FLANK PAIN & ABD PAIN -N/V/D. PT WAS SEEN HERE ON 02/17. PT AAOX4, VSS. DENIES CP, SOB, DIZZINESS, WEAKNESS @ THIS TIME. AWAITING EVAL BY ERMNeeraj/PA & WILL CONT TO MONITOR.
[2019-02-21 14:35] LABS: APPEARANCE,URINE Clear (CLEAR); BILIRUBIN,URINE Negative (NEGATIVE); BLOOD, URINE Negative Ery/uL (NEGATIVE); COLOR,URINE Yellow (YELLOW); KETONES,URINE Negative (NEGATIVE); LEUKOCYTE ESTERASE ,URINE Negative (NEGATIVE); NITRITE, URINE Negative (NEGATIVE); PH,URINE 6.5 (5.0-8.0); PROTEIN,URINE 30 mg/dl (NEGATIVE); UGLUCOSE Negative (NEGATIVE); UROBILINOGEN,URINE 0.2 EU/dL (0.2)
[2019-02-21 14:37] LABS: BACTERIA,URINE Rare /HPF (None Seen); RBC,URINE 0-2 /HPF (0-2); SQUAMOUS EPITHELIAL CELL,UR None Seen /HPF (None Seen); WBC,URINE 0-2 /HPF (0-3)
[2019-02-21 14:43] LABS: BASOPHILS % (AUTO) 0.8 % (0.0-2.0); EOSINOPHILS % (AUTO) 2.7 % (0.0-6.0); HEMATOCRIT 35 % (39-51); HEMOGLOBIN 11.6 g/dL (13.5-17.5); LYMPHOCYTES # (AUTO) 1.3 /CMM (0.8-4.8); LYMPHOCYTES % (AUTO) 19.9 % (20.0-44.0); MEAN CORPUSCULAR HGB CONC 34 g/dl (31.0-36.0); MEAN CORPUSCULAR VOLUME 88 fL (80-96); MONOCYTES # (AUTO) 0.5 /CMM (0.1-1.30); MONOCYTES % (AUTO) 8.2 % (2.0-12.0); NEUTROPHILS # (AUTO) 4.4 /CMM (1.8-8.9); NEUTROPHILS % (AUTO) 68.4 % (43.0-81.0); PLATELET COUNT (AUTO) 255 /CMM (150-450); RED BLOOD CELL COUNT(AUTO) 3.94 MIL/uL (4.5-6.0); WHITE BLOOD COUNT (AUTO) 6.4 K/uL (4.3-11.0)
[2019-02-21 14:49] LABS: CREATININE 1.4 mg/dL (0.6-1.3); POTASSIUM 3.7 mmol/L (3.5-5.1)
[2019-02-21 14:50] LABS: ALCOHOL, BLOOD < 3 mg/dL (0-0); MAGNESIUM 1.9 mg/dL (1.8-2.4)
[2019-02-21 14:55] LABS: ALBUMIN 3.1 g/dL (3.4-5.0); BILIRUBIN,DIRECT 0.1 mg/dL (0.0-0.2); BILIRUBIN,TOTAL 0.3 mg/dL (0.2-1.0); TOTAL PROTEIN, SERUM 6.7 g/dL (6.4-8.2)
[2019-02-21] MEDS ORDERED: ACETAMINOPHEN 325 MG TABLET ONE (15:27)
[2019-02-21] MEDS ORDERED: ACETAMINOPHEN 650 MG/20.3 ML UDC PO ONE (15:30)
[2019-02-21 16:16] VITALS: BP 143/89
--- NOTE | 2019-02-21 16:16 | NUR ---
Patient discharged to home in stable condition. Written and verbal after care instructions given. Patient verbalizes understanding of instruction.
== END 2019-02-21 16:17 | disposition home or self-care (01) ==
LOC: ER 13:45
DX: G89.29 Other chronic pain (principal); R10.84 Generalized abdominal pain; D63.1 Anemia in chronic kidney disease; I12.9 Hypertensive chronic kidney disease with stage 1 through stage 4 chronic kidney disease, or unspecified chronic kidney disease; N18.9 Chronic kidney disease, unspecified; E78.5 Hyperlipidemia, unspecified; F31.9 Bipolar disorder, unspecified; F12.90 Cannabis use, unspecified, uncomplicated; F17.210 Nicotine dependence, cigarettes, uncomplicated
CPT/HCPCS: 36415; 80048-TC; 80076-TC; 80305; 81000-TC; 83690-TC; 83735-TC; 85025-TC; G0480

== ENCOUNTER 2019-03-19 19:03 | Emergency (ER) | payer MEDICAID, OTHER ==
[~2019-03-19] VITALS: Ht 170.2 cm; Wt 76.7 kg
--- NOTE | 2019-03-19 19:29 | NUR ---
PT PRESENTED TO THE ER WITH A C/O ABD PAIN
[2019-03-19] MEDS ORDERED: ACETAMINOPHEN ES 500 MG TABLET ONE (19:35)
[2019-03-19 19:41] LABS: APPEARANCE,URINE Slightly Cloudy (CLEAR); BILIRUBIN,URINE Negative (NEGATIVE); BLOOD, URINE Negative Ery/uL (NEGATIVE); COLOR,URINE Yellow (YELLOW); KETONES,URINE Negative (NEGATIVE); LEUKOCYTE ESTERASE ,URINE Negative (NEGATIVE); NITRITE, URINE Negative (NEGATIVE); PH,URINE 8.5 (5.0-8.0); PROTEIN,URINE 30 mg/dl (NEGATIVE); UGLUCOSE Negative (NEGATIVE); UROBILINOGEN,URINE 0.2 EU/dL (0.2)
[2019-03-19 19:45] LABS: BACTERIA,URINE Rare /HPF (None Seen); MUCUS,URINE Many /LPF (None Seen); RBC,URINE NONE SEEN /HPF (0-2); WBC,URINE NONE SEEN /HPF (0-3)
[2019-03-19 19:48] LABS: BASOPHILS % (AUTO) 0.8 % (0.0-2.0); EOSINOPHILS % (AUTO) 2.9 % (0.0-6.0); HEMATOCRIT 39 % (39-51); LYMPHOCYTES # (AUTO) 1.3 /CMM (0.8-4.8); LYMPHOCYTES % (AUTO) 24.5 % (20.0-44.0); MEAN CORPUSCULAR HGB CONC 33 g/dl (31.0-36.0); MEAN CORPUSCULAR VOLUME 88 fL (80-96); MONOCYTES # (AUTO) 0.7 /CMM (0.1-1.30); MONOCYTES % (AUTO) 12.2 % (2.0-12.0); NEUTROPHILS # (AUTO) 3.3 /CMM (1.8-8.9); NEUTROPHILS % (AUTO) 59.6 % (43.0-81.0); PLATELET COUNT (AUTO) 253 /CMM (150-450); RED BLOOD CELL COUNT(AUTO) 4.42 MIL/uL (4.5-6.0); WHITE BLOOD COUNT (AUTO) 5.5 K/uL (4.3-11.0)
[2019-03-19] MEDS ORDERED: ACETAMINOPHEN ES 500 MG TABLET PO ONE (20:00)
[2019-03-19 20:02] LABS: ALBUMIN 3.6 g/dL (3.4-5.0); BILIRUBIN,DIRECT 0.1 mg/dL (0.0-0.2); BILIRUBIN,TOTAL 0.3 mg/dL (0.2-1.0); CALCIUM, SERUM 9.4 mg/dL (8.5-10.1); CREATININE 1.2 mg/dL (0.6-1.3); POTASSIUM 3.6 mmol/L (3.5-5.1); TOTAL PROTEIN, SERUM 7.1 g/dL (6.4-8.2)
--- NOTE | 2019-03-19 20:35 | NUR ---
Patient discharged to home in stable condition. Written and verbal after care instructions given. Patient verbalizes understanding of instruction. Pt rec'd a sandwich and juice. Pt tolerated PO well. VSS. PT ambulated out with a steady gait.
[2019-03-19 20:36] VITALS: BP 134/89
== END 2019-03-19 20:37 | disposition home or self-care (01) ==
LOC: ER 19:06
DX: G89.29 Other chronic pain (principal); R10.30 Lower abdominal pain, unspecified; E78.5 Hyperlipidemia, unspecified; F31.9 Bipolar disorder, unspecified; I12.9 Hypertensive chronic kidney disease with stage 1 through stage 4 chronic kidney disease, or unspecified chronic kidney disease; N18.9 Chronic kidney disease, unspecified; F12.90 Cannabis use, unspecified, uncomplicated; F17.200 Nicotine dependence, unspecified, uncomplicated
CPT/HCPCS: 36415; 80048-TC; 80076-TC; 81000-TC; 85025-TC

== ENCOUNTER 2022-09-02 14:32 | Emergency (ER) | payer OTHER ==
[~2022-09-02] VITALS: Ht 170.2 cm; Wt 77.1 kg
--- NOTE | 2022-09-02 14:40 | NUR ---
Received pt 56 YRS male walking in c/o pain on rt side dineses hx truma
--- NOTE | 2022-09-02 15:15 | NUR ---
SEEN PT AT BED SIDE
[2022-09-02] MEDS ORDERED: IBUPROFEN 600 MG TABLET PO ONE (15:30)
[2022-09-02] MEDS ORDERED: IBUPROFEN 600 MG TABLET ONE (15:35)
--- NOTE | 2022-09-02 16:30 | NUR ---
AT BED SIDE SPOOKING WITH PT ABOUT PLAN OF CARE AND FALLOW UP CARE
[2022-09-02] MEDS ORDERED: NAPR-1009 PO (16:42)
--- NOTE | 2022-09-02 16:45 | NUR ---
PT VODING 230 ML CLEARE YELLOW COLOR
--- NOTE | 2022-09-02 16:50 | NUR ---
Patient discharged to home in stable condition. Written and verbal after care instructions given. Patient verbalizes understanding of instruction.
[2022-09-02 17:02] VITALS: BP 139/77
== END 2022-09-02 17:04 | disposition home or self-care (01) ==
LOC: ER 14:40
DX: R07.81 Pleurodynia (principal); I12.9 Hypertensive chronic kidney disease with stage 1 through stage 4 chronic kidney disease, or unspecified chronic kidney disease; N18.9 Chronic kidney disease, unspecified; F31.9 Bipolar disorder, unspecified; F17.200 Nicotine dependence, unspecified, uncomplicated; Z60.2 Problems related to living alone
CPT/HCPCS: 71100-TC